=== PATIENT | female | born 1970 | race Caucasian/White ===

== ENCOUNTER 2020-09-29 15:23 | Outpatient (REF) | payer MEDICAID, OTHER, SELFPAY ==
--- NOTE | 2020-09-29 15:27 | US_ITS ---
EXAMINATION: US DIAGNOSTIC ULTRASOUND BREAST, LEFT CLINICAL INFORMATION: Six-month follow-up probable benign complicated cyst with apocrine metaplasia 3:00 position left breast. COMPARISON: Ultrasound left breast 03/23/2020. TECHNIQUE: Ultrasound left breast is targeted to the upper outer quadrant. Grayscale imaging and color Doppler are performed without and with harmonics. FINDINGS: The mildly complicated cyst is stable in size and appearance. Margins are circumscribed and overall size is approximately 0.6 x 0.4 cm. There is some low-level geographic internal echoes without associated peripheral or internal color flow. Other scattered simple cysts are also noted in the upper outer breast as before. No solid mass or architectural abnormality. Results are provided to the patient at time of visit by the technologist. US/US breast LT limited IMPRESSION: Mildly complicated or apocrine cyst under 1 cm, stable. ASSESSMENT: BI-RADS 2: Benign RECOMMENDATION: Routine annual mammography screening. This patient's information was entered into a reminder system with a target due date for their next mammogram.
== END 2020-09-29 15:24 | disposition home or self-care (01) ==
LOC: HO.MAMMO 15:23
PROVIDERS: Visit Provider Internal Medicine
DX: N60.02 Solitary cyst of left breast (principal)
CPT/HCPCS: 76642

== ENCOUNTER 2020-10-26 09:19 | Outpatient (REF) | payer MEDICAID, OTHER, SELFPAY ==
--- NOTE | 2020-10-26 | XR_ITS ---
EXAMINATION: XR ABDOMEN KUB CLINICAL INDICATION: Abdominal pain. COMPARISON: None TECHNIQUE: AP view of the abdomen. FINDINGS: There is scattered stool and gas seen throughout the colon without any significant distention. There is no organomegaly. No radiopaque calculi. No gross bony abnormality. XR/XR KUB IMPRESSION: Mild constipation.
[2020-10-26 11:34] LABS: Glucose Urine UA NEG (NEG); Leukocyte Esterase Urine NEG (NEG); Nitrite Urine NEG (NEG); PH 6.5 (5.0-8.0); Specific Gravity - Urine <= 1.005 (1.005-1.025); Urine Blood NEG (NEG); Urine Ketones NEG (NEG); Urine Protein NEG (NEG-TRACE)
[2020-10-26 11:37] LABS: Appearance Urine CLEAR; Color Urine STRAW
== END 2020-10-26 09:20 | disposition home or self-care (01) ==
LOC: HO.HMGCLDS 09:19
PROVIDERS: PCP Pediatrics; Visit Provider Internal Medicine
DX: R10.9 Unspecified abdominal pain (principal)
CPT/HCPCS: 74018; 81003

== ENCOUNTER 2022-07-28 16:23 | Outpatient (REF) | payer MEDICAID, OTHER, SELFPAY ==
--- NOTE | ~2022-07-28 | MM_ITS ---
EXAMINATION: MM SCREENING DIGITAL BREAST TOMOSYNTHESIS, BILATERAL CLINICAL INFORMATION: Screening. Asymptomatic. The lifetime risk of breast cancer based on the Tyrer-Cuzick Model is 9.9%. COMPARISON: Mammography: 03/23/2020 and studies dating back to 03/08/2010. TECHNIQUE: Digital breast tomosynthesis is performed in both the craniocaudal and mediolateral oblique views along with computer-aided detection (CAD). Synthesized 2D images are generated from the tomosynthesis. FINDINGS: The breasts are heterogeneously dense, which may obscure small masses (ACR BI-RADS breast composition Category c). There is a stable parenchymal pattern in the right breast with no new abnormal dominant mass or suspicious grouping of microcalcifications. Within the deep lateral aspect of the left breast, there is a question of some developing calcifications versus artifact. Spot magnification films of the left breast in craniocaudal projection is recommended. MM/MM tomosynthesis screening BI IMPRESSION: Left breast calcifications for further evaluation. ASSESSMENT: BI-RADS 0: Incomplete - Need Additional Imaging Evaluation RECOMMENDATION: 1. Additional views of the left breast. 2. Targeted ultrasound if warranted after review of the additional views. 3. Radiology department staff will contact the patient for additional imaging. This patient's information was entered into a reminder system with a target due date for their next mammogram.
== END 2022-07-28 16:24 | disposition home or self-care (01) ==
LOC: HO.MAMMO 16:23
PROVIDERS: PCP Pediatrics; Visit Provider Pediatrics
DX: Z12.31 Encounter for screening mammogram for malignant neoplasm of breast (principal)
CPT/HCPCS: 77063; 77067

== ENCOUNTER 2022-08-10 14:39 | Outpatient (REF) | payer MEDICAID, OTHER, SELFPAY ==
--- NOTE | ~2022-08-10 | MM_ITS ---
EXAMINATION: MM DIAGNOSTIC DIGITAL MAMMOGRAPHY, LEFT CLINICAL INFORMATION: Calcifications deep lateral aspect of the left breast. COMPARISON: Mammography: 07/28/2022 and studies dating back to 04/25/2012. TECHNIQUE: Digital mammography is performed in the following views: Spot compression craniocaudal and 90 degree mediolateral views. FINDINGS: The breasts are heterogeneously dense, which may obscure small masses (ACR BI-RADS breast composition Category c). No suspicious grouping of microcalcifications is identified. Some widely scattered calcifications are present. Stable density about the deep lateral aspect of the left breast is again seen. Results are provided to the patient at time of visit by the technologist. MM/MM added views LT IMPRESSION: No suspicious grouping of calcifications identified. ASSESSMENT: BI-RADS 2: Benign. RECOMMENDATION: Routine annual mammography screening. This patient's information was entered into a reminder system with a target due date for their next mammogram.
== END 2022-08-10 14:40 | disposition home or self-care (01) ==
LOC: HO.MAMMO 14:39
PROVIDERS: PCP Pediatrics; Visit Provider Pediatrics
DX: R92.1 Mammographic calcification found on diagnostic imaging of breast (principal)
CPT/HCPCS: 77065

== ENCOUNTER 2023-08-04 15:50 | Outpatient (REF) | payer OTHER, SELFPAY ==
--- NOTE | ~2023-08-04 | MM_ITS ---
EXAMINATION: MM SCREENING DIGITAL BREAST TOMOSYNTHESIS, BILATERAL CLINICAL INFORMATION: Screening. Asymptomatic. COMPARISON: Mammography: This study is compared with prior exams dating back to 2019. TECHNIQUE: Digital breast tomosynthesis is performed in both the craniocaudal and mediolateral oblique views along with computer-aided detection (CAD). Synthesized 2D images are generated from the tomosynthesis. FINDINGS: There are scattered areas of fibroglandular density (ACR BI-RADS breast composition Category b). There are no significant masses, abnormal calcifications, or other abnormalities. There is a tissue marker in the medial aspect of the left breast from prior benign percutaneous biopsy. MM/MM tomosynthesis screening BI IMPRESSION: No mammographic evidence of malignancy. ASSESSMENT: BI-RADS BI-RADS 2 - Benign Findings RECOMMENDATION: Routine annual mammography screening. 1 year F/U This examination should not preclude the clinical evaluation of a suspicious palpable abnormality. This patient's information was entered into a reminder system with a target due date for their next mammogram.
== END 2023-08-04 15:51 | disposition home or self-care (01) ==
LOC: HO.MAMMO 15:50
PROVIDERS: PCP Pediatrics; Visit Provider Pediatrics
DX: Z12.31 Encounter for screening mammogram for malignant neoplasm of breast (principal)
CPT/HCPCS: 77063; 77067

== ENCOUNTER → 2023-08-04 16:00 | Outpatient (BNV) | payer SELFPAY | PROVIDERS: PCP Pediatrics; Visit Provider Radiology Diagnostic Radiology | DX: Z12.31 Encounter for screening mammogram for malignant neoplasm of breast (principal) | CPT/HCPCS: 77063; 77067 ==

== ENCOUNTER 2024-02-29 09:43 | Outpatient (REF) | payer OTHER, SELFPAY ==
[2024-02-29 15:04] LABS: Alanine Aminotransferase 16 U/L (0-31); Albumin Level 4.2 g/dL (3.5-5.0); Alkaline Phosphatase 67 U/L (39-117); Anion Gap 12 (12-20); Aspartate Amino Transferase 18 U/L (5-31); Bilirubin Direct 0.2 mg/dL (0.0-0.5); Bilirubin Total 0.8 mg/dL (0.0-1.0); Blood Urea Nitrogen 13 mg/dL (9-16); Calcium 9.7 mg/dL (8.4-10.2); Carbon Dioxide 27 mmol/L (22-29); Chloride 105 mmol/L (96-108); Cholesterol 216 mg/dL (<200); Estimated Glomerular Filt Rate > 60; Glucose Random 93 mg/dL (60-115); HDL Cholesterol 58 mg/dL (>40); LDL Cholesterol Calculated 137 mg/dL (<100); Potassium 3.7 mmol/L (3.3-5.1); Sodium 140 mmol/L (135-145); Total Protein 7.4 g/dL (6.5-8.0); Triglycerides 105 mg/dL (<150)
[2024-03-01 08:12] LABS: ~HepC Num1 0.08 S/CO (0.00-0.79); ~Hepatitis C Antibody Nonreactive (Nonreactive)
[2024-03-03 06:39] LABS: HIV RNA PCR Qn Copies Not Detected Copies/mL; HIV RNA PCR Qn Log Copies Not Detected Log cps/mL
== END 2024-02-29 09:44 | disposition home or self-care (01) ==
LOC: HO.CHCLDS 09:43
PROVIDERS: Visit Provider Student in an Organized Health Care Education/Training Program
DX: R00.2 Palpitations (principal)
CPT/HCPCS: 36415; 80048; 80061; 80076; 86803; 87536; 87900

== ENCOUNTER 2024-08-06 15:19 | Outpatient (REF) | payer OTHER, SELFPAY ==
--- NOTE | ~2024-08-06 | MM_ITS ---
EXAMINATION: MM SCREENING DIGITAL BREAST TOMOSYNTHESIS, BILATERAL CLINICAL INFORMATION: Screening. Asymptomatic. COMPARISON: Mammography: Comparison is made with available priors TECHNIQUE: Digital breast mammography with tomosynthesis is performed in both the craniocaudal and mediolateral oblique views along with computer-aided detection (CAD). FINDINGS: The breasts are heterogeneously dense, which may obscure small masses (ACR BI-RADS breast composition Category c). Left: There are no significant masses, abnormal calcifications, or other abnormalities. Right: Asymmetry with questioned distortion superior right breast on MLO view middle depth. Post surgical changes. No suspicious calcifications or other abnormal findings. MM/MM tomosynthesis screening BI IMPRESSION: Additional imaging is recommended ASSESSMENT: BI-RADS BI-RADS 0 - Incomplete: Needs additional Imaging. RECOMMENDATION: 1. Additional views of the right breast 2. Targeted ultrasound if warranted after review of the additional views. 3. Radiology department staff will contact the patient for additional imaging. Additional Imaging required This examination should not preclude the clinical evaluation of a suspicious palpable abnormality. This patient's information was entered into a reminder system with a target due date for their next mammogram. Electronically signed by: Consuelo Felix DO 08/13/2024 11:42 AM GEORGE
== END 2024-08-06 15:20 | disposition home or self-care (01) ==
LOC: HO.MAMMO 15:19
PROVIDERS: PCP Pediatrics; Visit Provider Pediatrics
DX: Z12.31 Encounter for screening mammogram for malignant neoplasm of breast (principal)
CPT/HCPCS: 77063; 77067

== ENCOUNTER → 2024-08-06 15:45 | Outpatient (BNV) | payer SELFPAY | PROVIDERS: PCP Pediatrics; Visit Provider Internal Medicine | DX: Z12.31 Encounter for screening mammogram for malignant neoplasm of breast (principal) | CPT/HCPCS: 77063; 77067 ==

== ENCOUNTER 2024-08-28 08:36 | Outpatient (REF) | payer SELFPAY ==
--- NOTE | ~2024-08-28 | MM_ITS ---
EXAMINATION: MM DIAGNOSTIC DIGITAL BREAST TOMOSYNTHESIS, RIGHT Limited right breast ultrasound. CLINICAL INFORMATION: Call back from screening for asymmetry with questioned distortion in the superior right breast on MLO view. COMPARISON: Mammography: Comparison is made with available prior examinations. TECHNIQUE: Digital breast tomosynthesis is performed in both the craniocaudal and mediolateral oblique views along with computer-aided detection (CAD). Synthesized 2D images are generated from the tomosynthesis. Limited right breast ultrasound. FINDINGS: The breasts are heterogeneously dense, which may obscure small masses (ACR BI-RADS breast composition Category c). The previously seen asymmetry with questioned architectural distortion partially effaces on additional imaging projections. Suspicious calcifications or other abnormal findings. Post surgical changes are again seen. Targeted right breast ultrasound the upper central breast and upper outer quadrant and upper inner quadrant demonstrates normal fibroglandular breast tissue. MM/MM tomosynthesis added views R IMPRESSION: Asymmetry superior right breast on MLO view which partially effaces and without sonographic correlate. Recommend 6 month follow-up right breast mammography for further evaluation of stability. ASSESSMENT: BI-RADS BI-RADS 3 - Probably benign finding(s) - 6 month follow-up suggested RECOMMENDATION: 1 year F/U (accession [id number]), 6 Month F/U (accession [id number]) Results were provided to the patient at time of visit by the technologist. This patient's information was entered into a reminder system with a target due date for their next mammogram. Electronically signed by: Consuelo Felix DO 08/28/2024 09:39 AM GEORGE
--- NOTE | ~2024-08-28 | US_ITS ---
EXAMINATION: MM DIAGNOSTIC DIGITAL BREAST TOMOSYNTHESIS, RIGHT Limited right breast ultrasound. CLINICAL INFORMATION: Call back from screening for asymmetry with questioned distortion in the superior right breast on MLO view. COMPARISON: Mammography: Comparison is made with available prior examinations. TECHNIQUE: Digital breast tomosynthesis is performed in both the craniocaudal and mediolateral oblique views along with computer-aided detection (CAD). Synthesized 2D images are generated from the tomosynthesis. Limited right breast ultrasound. FINDINGS: The breasts are heterogeneously dense, which may obscure small masses (ACR BI-RADS breast composition Category c). The previously seen asymmetry with questioned architectural distortion partially effaces on additional imaging projections. Suspicious calcifications or other abnormal findings. Post surgical changes are again seen. Targeted right breast ultrasound the upper central breast and upper outer quadrant and upper inner quadrant demonstrates normal fibroglandular breast tissue. US/US breast RT limited mamm only IMPRESSION: Asymmetry superior right breast on MLO view which partially effaces and without sonographic correlate. Recommend 6 month follow-up right breast mammography for further evaluation of stability. ASSESSMENT: BI-RADS BI-RADS 3 - Probably benign finding(s) - 6 month follow-up suggested RECOMMENDATION: 1 year F/U (accession [id number]), 6 Month F/U (accession [id number]) Results were provided to the patient at time of visit by the technologist. This patient's information was entered into a reminder system with a target due date for their next mammogram. Electronically signed by: Consuelo Felix DO 08/28/2024 09:39 AM GEORGE
== END 2024-08-28 08:37 | disposition home or self-care (01) ==
LOC: HO.MAMMO 08:36
PROVIDERS: PCP Pediatrics; Visit Provider Pediatrics
DX: N64.89 Other specified disorders of breast (principal)
CPT/HCPCS: 76642; 77061; 77065

== ENCOUNTER → 2024-08-28 09:00 | Outpatient (BNV) | payer SELFPAY | PROVIDERS: PCP Pediatrics; Visit Provider Internal Medicine | DX: R92.331 Mammographic heterogeneous density, right breast (principal); R92.321 Mammographic fibroglandular density, right breast; R92.8 Other abnormal and inconclusive findings on diagnostic imaging of breast | CPT/HCPCS: 76642; 77061; 77065 ==

== ENCOUNTER 2025-02-27 10:25 | Outpatient (REF) | payer OTHER, SELFPAY ==
--- NOTE | ~2025-02-27 | MM_ITS ---
EXAMINATION: MM DIAGNOSTIC DIGITAL BREAST TOMOSYNTHESIS, RIGHT CLINICAL INFORMATION: Asymmetry superior right breast on MLO view which partially effaces and without sonographic correlate recommended for 6 month follow-up for further evaluation of stability. COMPARISON: Mammography: Prior imaging on PACS. TECHNIQUE: Digital breast tomosynthesis is performed in both the craniocaudal and mediolateral oblique views along with computer-aided detection (CAD). Synthesized 2D images are generated from the tomosynthesis. FINDINGS: The breasts are heterogeneously dense, which may obscure small masses (ACR BI-RADS breast composition Category c). Asymmetry superior right breast middle depth on MLO view is also slightly less conspicuous compared with priors. No sonographic correlate was previously seen. No suspicious calcifications or other abnormal findings. MM/MM tomosynthesis diagnostic RT IMPRESSION: Right: Asymmetry superior right breast middle depth on MLO view without sonographic correlate not significantly changed from prior. Recommend 6 month follow up with the patient is due for bilateral mammography to demonstrate 1 year of stability. ASSESSMENT: BI-RADS BI-RADS 3 - Probably benign finding(s) - 6 month follow-up suggested RECOMMENDATION: 6 Month F/U Results were provided to the patient at time of visit by the technologist. This patient's information was entered into a reminder system with a target due date for their next mammogram. Electronically signed by: Consuelo Felix DO 02/27/2025 11:23 AM EDT
--- OUTSIDE RECORDS SUMMARY | 2025-02-27 10:50 | XMS_ITS | Referral Summary ---
Author Organization [facility] Address [address] [place] [address] Care Team Providers Care Epic Manager Name Role Phone Nicki Hickey Primary Care Provider [phone] Allergies No known active allergies Medications dilTIAZem CD (CARDIZEM CD) 120 mg 24 hr capsule Take 1 capsule (120 mg total) by mouth once a day. 30 capsule 11 09/22/2021 Active Active Problems Problem Noted Date Diagnosed Date Palpitations 09/22/2021 Social History Tobacco Use Types Packs/Day Years Used Date Smoking Tobacco: Never Smokeless Tobacco: Never Comments Unknown Sex and Gender Information Value Date Recorded Sex Assigned at Not on file Legal Sex Female 1:20 PM EDT Gender Identity Not on file Sexual Orientation Not on file Last Filed Vital Signs Vital Sign Reading Time Taken Comments Blood Pressure 127/82 09/22/2021 2:20 PM EST Pulse 80 09/22/2021 2:20 PM EST Temperature - - Respiratory Rate 16 09/22/2021 2:20 PM EST Oxygen Saturation 100% 09/22/2021 2:20 PM EST Inhaled Oxygen Concentration - - Weight 56 kg (123 lb 6.4 oz) 09/22/2021 2:20 PM EST Height - - Body Mass Index - - Plan of Treatment Not on file Insurance HS[employer]/[place] [address] [place] [address] Care Teams Epic Manager Relationship Specialty Start Date End Date Nicki Hickey [address] [place] [phone] PCP - General Family Medicine 07/30/21
== END 2025-02-27 10:26 | disposition home or self-care (01) ==
LOC: HO.MAMMO 10:25
PROVIDERS: PCP Pediatrics; Visit Provider Pediatrics
DX: N64.89 Other specified disorders of breast (principal)
CPT/HCPCS: 77061; 77065

== ENCOUNTER → 2025-02-27 11:00 | Outpatient (BNV) | payer SELFPAY | PROVIDERS: PCP Pediatrics; Visit Provider Internal Medicine | DX: R92.2 Inconclusive mammogram (principal) | CPT/HCPCS: 77061; 77065 ==

== ENCOUNTER 2025-06-12 15:56 | Outpatient (REF) | payer SELFPAY ==
--- OUTSIDE RECORDS SUMMARY | 2025-06-11 18:00 | XMS_ITS | Encounter Summary ---
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 Name Role Phone Nicki Hickey MD Primary Care Provider [phone] Encounter Details Date Type Department Care Team ([facility] st Contact Info) Description 06/11/2025 6:00 PM EDT Office Visit [facility] [address] [place] [phone] Arun Peterson MD [address] [place] [id number] Occupational exposure in workplace (Primary Dx); Hypodermic needlestick injury of finger Social History Tobacco Use Types Packs/Day Years Used Date Smoking Tobacco: Never Passive Smoke Exposure: Never Smokeless Tobacco: Never Alcohol Use Standard Drinks/Week Comments Never 0 (1 standard drink = 0.6 oz pur e alcohol) Alcohol Answer Date Recorded Frequency of Alcohol Consumption Not on file 02/29/2024 Average Number of Drinks Not on file 024 Frequency of Binge Drinking Not on file 02/01 Score 0 02/29/2024 Depression Answer Date Recorded Patient Health Questionnaire-9 Score 3 02/29/2024 Patient Health Questionnaire-9 Score 3 02/29/2024 Last PHQ-9: Questionnaire Data Not on file 0 02/29/2024 Housing Stability Answer Date Recorded What is your housing situation today? I have tana allison 02/29/[address] you li ve. Do you have problems with any of the following? None of the above 02/29/2024 Food Insecurity Answer Date Recorded Within the past 12 months, y ou worried that your food would run out before you got money to buy more: Never True 02/29/2024 Within the past 12 months,th e food you bought just didn't last and you didn't have enough money to get more: Never True Transportation Answer Date Recorded In the past 12 months, has l ack of transportation kept you from medical appts, meetings, work or from getting things needed for daily living? No 02/29/2024 Utilities Answer Date Recorded In the past 12 months, has t he electric, gas, oil or water company threatened to shut off services in your home? No 02/29/2024 Depression Answer Date Recorded Patient Health Questionnaire-2 Score 0 02/29/2024 Comments Unknown Sex and Gender Information Value Date Recorded Sex Assigned at Female 08/01/2022 10:16 AM EDT Legal Sex Female 10:16 AM EDT Gender Identity Female 08/01/2022 10:16 AM EDT Sexual Orientation Straight 08/01/2022 10 :16 AM EDT documented as of this encounter Last Filed Vital Signs Vital Sign Reading Time Taken Comments Blood Pressure 131/78 06/11/2025 5:56 PM EDT Pulse 77 06/11/2025 5:56 PM EDT Temperature 36.1 C (96.9 F) 06/11/2025 5:56 PM EDT Respiratory Rate 20 06/11/2025 5:56 PM EDT Oxygen Saturation 98% 06/11/2025 5:56 PM EDT Inhaled Oxygen Concentration - - Weight 52.9 kg (116 lb 9.6 oz) 06/11/2025 5:56 P M EDT Height 147.3 cm (4' 10 ) 06/11/2025 5:56 PM EDT Body Mass Index 24.37 06/11/2025 5:56 PM EDT documented in this encounter Progress Notes * Arun Peterson MD - 06/11/2025 6:00 PM EDT Subjective History was provided by the patient. Nusrat Conte is a 55 y.o. female who presents to [facility] after an occupational needle stickto her right index finger which occurred 3 hours prior to the presentation. 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 She accidentally stuck herself, causing a puncture wound. The resident's STI status is unknown and the team has not yet asked for a permission to check his status. The source resident did not have any known communicable disease documented as far as she knows. Patient previously had negative HIV and Hep C results (02/29/2024). Objective Vitals: 06/11/25 1756 BP: 131/78 Pulse: 77 Resp: 20 Temp: 96.9 ??F (36.1 ??C) TempSrc: Temporal SpO2: 98% Weight: 116 lb 9.6 oz (52.9 kg) Height: 4' 10 (1.473 m) Physical Exam Constitutional: General: She is not in acute distress. Appearance: Normal appearance. She is not ill-appearing, toxic-appearing or diaphoretic. HENT: Head: Normocephalic and atraumatic. Nose: Nose normal. Mouth/Throat: Mouth: Mucous membranes are moist. Pharynx: Oropharynx is clear. Eyes: Extraocular Movements: Extraocular movements intact. Conjunctiva/sclera: Conjunctivae normal. Pulmonary: Effort: Pulmonary effort is normal. Musculoskeletal: General: Normal range of motion. Cervical back: Neck supple. Skin: General: Skin is warm and dry. Comments: Small punctum at the tip of right index finger; no surrounding erythema or edema; no active bleeding Neurological: General: No focal deficit present. Mental Status: She is alert and oriented to person, place, and time. Psychiatric: Mood and Affect: Mood normal. Behavior: Behavior normal. Diagnoses and all orders for this visit: Occupational exposure in workplace (Primary) - HIV-1/2 Antigen and Antibodies, Fourth Generation, with Reflexes; Future - hiktuhjkhjo-adxlzdxawu-zssqdzamz (Biktarvy) 50-200-25 MG tablet; Take 1 tablet by mouth Once per day for 28 days. Initiate therapy within 72 hours of exposure - Hepatitis B Surface Antibody, Qualitative; Future - Hepatitis B surface antigen, EIA; Future - Hepatic Function Panel; Future - Hepatitis C Antibody with Reflex to HCV, RNA, Quantitative, Real-Time PCR; Future - Syphilis Screen; Future Hypodermic needlestick injury of finger - HIV-1/2 Antigen and Antibodies, Fourth Generation, with Reflexes; Future - uoqcatdxouc-ggnbxyzuyd-rrokxprzn (Biktarvy) 50-200-25 MG tablet; Take 1 tablet by mouth Once perday for 28 days. 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 Had a needle stick injury to her right index finger contaminated with a rehab resident's urine STI status of the source resident is unknown Informed patient of fairly low HIV transmission rate following percutaneous exposure Discussed testing parameters and frequency of testing Will check baseline HIV test (4th Gen Ab/Ag), along with Hep B SAg, Hep C Ab, Syphilis, and LFT If continuing with the 4th Gen HIV labs, will repeat at 6 weeks and 4 months Will also check Hep B SAb as we only have a documentation of 1 dose of Hep B vaccine (03/22/2024) Patient is UTD on Tdap (03/22/2024) Discussed indications for post-exposure prophylaxis for HIV Patient will discuss with the workplace to see if testing of the source resident can be offered [facility] protocol Patient opted to start PEP until the resident's result returns negative (if available) or for 28 days (will reassess afterward) Shared decision was made after discussing the risks of infection with HIV against the toxicity and inconvenience of PEP Rx Hwctnkhcydq-Pusduburaweyq-Yujfdyagd [id number] PO daily for 28 days Also advised to monitor for any symptoms of infection including redness, swelling, pain, and F/C Indications for UC/ER use reviewed Advised to contact the clinic if any worsening or persistent symptoms Will contact the PCP team to offer a follow-up appointment documented in this encounter Plan of Treatment Scheduled Orders Name Type Priority Associated Diagnoses Orde r Schedule HIV-1/2 Antigen and Antibodies, Fourth Generation, with Reflexes Lab Routine Occupational exposure in workplace Hypodermic needlestick injury of finger Expected: 06/11/2025 (Approximate), Expires: 06/11/2026 Hepatitis B Surface Antibody, Qualitative Lab Routine Occupational exposure in workplace Hypodermic needlestick injury of finger Expected: 06/11/2025 (Approximate), Expires: 06/11/2026 Hepatitis B surface antigen, EIA Lab Routine Occupational exposure in workplace Hypodermic needlestick injury of finger Expected: 06/11/2025 (Approximate), Expires: 06/11/2026 Hepatitis C Antibody with Reflex to HCV, RNA, Quantitative, Real-Time PCR Lab Routine Occupational exposure in workplace Hypodermic needlestick injury of finger Expected: 06/11/2025 (Approximate), Expires: 06/11/2026 Syphilis Screen Lab Routine Occupational exposure in workplace Hypodermic needlestick injury of finger Expected: 06/11/2025 (Approximate), Expires: 06/11/2026 documented as of this encounter Procedures Procedure Name Priority Date/Time Associated Diagnosis Comments HEPATIC FUNCTION PANEL Routine 06/12/2025 3:38 PM EDT Occupational exposure in workplace Hypodermic needlestick injury of finger documented in this encounter Results * Hepatic Function Panel (06/12/2025 3:38 PM EDT) Bilirubin, Total 0.9 0.0 - 1.0 mg/dL [facility] Bilirubin, Direct 0.2 0.0 - 0.5 mg/dL [facility] Aspartate Amino Transferase 26 5 - 31 U/L [facility] Alanine Aminotransferase 22 0 - 31 U/L [facility] Total Protein 7.2 6.5 - 8.0 g/dL [facility] Albumin Level 4.4 3.5 - 5.0 g/dL [facility] Alkaline Phosphatase 73 39 - 117 U/L [facility] Blood Venous blood specimen / Unknown 06/12/2025 3:38 PM EDT 06/12/2025 5:29 PM EDT us Arun Peterson MD LAB BLOOD ORDERABLES Final Resul t [facility] [address] [place] [phone] [phone] documented in this encounter Visit Diagnoses Diagnosis Occupational exposure in workplace- Primary Hypodermic needlestick injury of finger documented in this encounter Additional Health Concerns Assessment Noted Time PHQ-9 Depression Total Score: 3 02/29/20 24 9:15 AM EDT documented as of this encounter Care Teams Treating Machine Operator Relationship Specialty Start Date End Date Nicki Hickey MD [address] [place] [address] PCP - General Family Medicine 11/01/13 documented as of this encounter
[2025-06-12 17:58] LABS: Alanine Aminotransferase 22 U/L (0-31); Albumin Level 4.4 g/dL (3.5-5.0); Alkaline Phosphatase 73 U/L (39-117); Aspartate Amino Transferase 26 U/L (5-31); Total Protein 7.2 g/dL (6.5-8.0)
--- OUTSIDE RECORDS SUMMARY | 2025-06-12 18:51 | XMS_ITS | Encounter Summary ---
Author Organization [employer] Address [address] [facility] [address] 7[address] [place] [address] Care Team Providers Care Call Center Manager Name Role Phone Nicki Hickey MD Primary Care Provider [phone] Encounter Details Date Type Department Care Team ([facility] Contact Info) Description 06/11/2025 Telephone [facility] [address] [place], [place] [phone] Arun Peterson MD [address] [place] [address] Social History Tobacco Use Types Packs/Day Years [...] your housing situation today? I have tana keegan 02/29/[address] you li [...] AM EDT documented as of this encounter Miscellaneous Notes * Telephone Encounter - Arun Peterson MD - 06/11/2025 7:34 PM EDT Request for an appointment with PCP. documented in this encounter Plan of Treatment Not on file documented as of this encounter Visit Diagnoses Not on filedocumented in this encounter Additional Health Concerns Assessment Noted Time PHQ-9 Depression Total Score: 3 02/29/20 24 9:15 AM EDT documented as of this encounter Care Teams Call Center Manager Relationship Specialty Start Date End Date Nicki Hickey MD [address] [place] [phone] PCP - General Family Medicine 11/01/13 documented as of this encounter
--- OUTSIDE RECORDS SUMMARY | 2025-06-12 18:51 | XMS_ITS | Clinical Summary ---
Author Organization [facility] Address [address] [place] [address] Care Team Providers Care Unit Controller Name Role Phone Nicki Hickey Primary Care Provider [phone] Allergies No known active allergies Medications dilTIAZem [...] Mass Index - - Plan of Treatment Health Maintenance Due Date Last Done Comments Cologuard 1971 Colon Cancer Screening 1971 Colonoscopy 1971 FOBT / Fit Test 1971 HIV Screening 1971 Sigmoidoscopy 1971 Hepatitis B Vaccines (1 of 3 - 19+ 3-dose series) 1990 DTaP,Tdap,and Td Vaccines (1 - Tdap) 1993 Pneumococcal Vaccine: 50+ Ye ars (1 of 1 - PCV) 2021 Zoster Vaccines (1 of 2) 2021 Alcohol/Substance Use Screening 10/02/2024 COVID-19 Vaccine (4 - 2024-2 6 season) 2025 10/04/2021, 02/01/2021, 01/11/2021 Influenza Vaccine (#1) 2025 , 10/22/2020, 07/24/2015, Additional history exists RSV Vaccine (60+ years old a nd patients) (1 - 1-dose 75+ series) 2046 [place] [id number] Care Teams Unit Controller Relationship Specialty Start Date End Date Nicki Hickey [address] [place] [phone] PCP - General Family Medicine 07/30/21
--- OUTSIDE RECORDS SUMMARY | 2025-06-12 18:51 | XMS_ITS | Encounter Summary ---
Author Organization [employer] Address 75 [facility] 7t [place] [address] Care Team Providers Care Business Integration Analyst Name Role Phone Nicki Hickey MD Primary Care Provider [phone] Encounter Details Date Type Department Care Team (Latest Contact Info) Description 06/11/2025 Travel Social History Tobacco Use Types Packs/Day Years [...] AM EDT documented as of this encounter Plan of Treatment Not on file documented as of this encounter Visit Diagnoses Not on filedocumented in this encounter Additional Health Concerns Assessment Noted Time PHQ-9 Depression Total Score: 3 02/29/20 24 9:15 AM EDT documented as of this encounter Care Teams Business Integration Analyst Relationship Specialty Start Date End Date Nicki Hickey MD [address] [place] [address] PCP - General Family Medicine 11/01/13 documented as of this encounter
--- OUTSIDE RECORDS SUMMARY | 2025-06-12 18:51 | XMS_ITS | Clinical Summary ---
Author Organization [employer] Address [address] [facility] 7t [place] [address] Care Team Providers Care Substation Operator Helper Generation Name Role Phone Nicki Hickey MD Primary Care Provider [phone] Allergies No known active allergies Medications bictegravir-emtr icitab-tenofovir (Biktarvy) 50-200-25 MG tabletIndication s:Occupational exposure in workplace,Hypode rmic needlestick injury of finger Take 1 tablet by mouth Once per day for 28 days. Initiate therapy within 72 hours of exposure 28 tablet 07/09/20 25 Active Active Problems Problem Noted Date Diagnosed Date Palpitations 09/22/2021 Resolved Problems Problem Noted Date Diagnosed Date Resolved Date Pain of breast 2012 02/29/2024 Encounters Date Type Department Care Team Description 06/11/2025 6:00 PM EDT Office Visit [facility] [address] [place] [phone] Arun Peterson MD Occupational exposure in workplace (Primary Dx); Hypodermic needlestick injury of finger 06/11/2025 Telephone [facility] [address] [place] [address] Arun Peterson MD 06/11/2025 Travel 03/18/2025 Telephone [facility] [address] [place] [address] [phone] Stacy Santiago CNM June Recall from Last 3 Months Immunizations Immunization Administration Dates Next Due Hep B, adult 03/22/2024 Influenza Injectable Quadriv alant Preservative Free IIV4 MDCK 10/22/2020 Influenza injectable quadriv alent IIV4 with preservative 07/24/2015 Influenza injectable quadriv alent preservative free 06/22/2022,07/16/2021,07/22/2014 Influenza, Split (incl. jas fied surface antigen) 2012 MMR 03/22/2024 Pfizer Covid-19 Vaccine 12+ 03/22/2024,0 10/04/2021,02/01/2021,2020 TD (adult), 2 Lf tetanus tox oid, preservative free, adsorbed 02/29/2024 Tdap 03/22/2024 Zoster, Recombinant 01/17/2024,07/18/2022 Social History Tobacco Use Types Packs/Day Years Used Date Smoking Tobacco: Never Passive Smoke Exposure: Never Smokeless Tobacco: Never Tobacco Cessation:Counseling Given: Not Answered Alcohol Use Standard Drinks/Week Comments Never 0 [...] Orientation Straight 08/01/2022 10 :16 AM EDT Last Filed Vital Signs Vital Sign Reading [...] Mass Index 24.37 06/11/2025 5:56 PM EDT Plan of Treatment Health Maintenance Due Date Last Done Comments CT Colonography 1971 Colonoscopy 1971 Colorectal Cancer Screening 1971 FIT DNA/Cologuard 1971 FIT 1971 FOBT 1971 HIV Screening 1971 Sigmoidoscopy 1971 Disability Screening 1971 Alcohol/Substance Use Screening 1983 Pneumococcal Vaccine: 50+ Years (1 of 1 - PCV) 2021 Hepatitis B Vaccines (2 of 3 - 19+ 3-dose series) 04/19/2024 03/22/2024 Dental Oral Exam 10/14/2024 04/12/2024 Depression Screening 02/28/2025 02/29/2024, 02/29/20 24 SDOH Screening 02/28/2025 02/29/2024 Dental X-Ray: Bitewings 04/13/2025 04/12/2024 Dental Prophylaxis 04/23/2025 10/23/2024, 04/12/2024 COVID-19 Vaccine ( season) 2025 03/22/2024, 08/01/2022, 10/04/2021, Additional history exists Influenza Vaccine (#1) 2025 2, 07/16/2021, 10/22/2020, Additional history exists Cervical Cancer Screening 06/09/2025 HPV/Cotest 06/09/2025 06/09/2020, 05/02/2017 Pap Smear 06/09/2025 06/09/2020 Tobacco Screening 06/11/2026 06/11/2025 Mammogram 02/27/2027 02/27/2025, 08/03, 08/06/2024, Additional history exists Dental X-Ray: Full Mouth 04/13/2027 04/12/2024 DTaP/Tdap/Td Vaccines (2 - Td or Tdap) 03/22/2034 03/22/2024, 02/29/2024 RSV Patients and Patients Aged 60 years or older (1 - 1-dose 75+ series) 2046 Zoster Vaccines Completed 01/17/2024, 07/18/2022 Hepatitis C Screening Completed 02/29/2024 HIB Vaccines Aged Out No longer eligi ble based on patient's age to complete this topic HPV Vaccines Aged Out No longer eligi ble based on patient's age to complete this topic Hepatitis A Vaccines Aged Out No long er eligible based on patient's age to complete this topic IPV Vaccines Aged Out No longer eligi ble based on patient's age to complete this topic Meningococcal B Vaccine Aged Out No l onger eligible based on patient's age to complete this topic Meningococcal Vaccine Aged Out No milan diana eligible based on patient's age to complete this topic RSV under 20 months Aged Out No longe r eligible based on patient's age to complete this topic Rotavirus Vaccines Aged Out No longer eligible based on patient's age to complete this topic Procedures Procedure Name Priority Date/Time Associated Diagnosis Comments HEPATIC FUNCTION PANEL Routine 3:38 PM EDT Occupational exposure in workplace Hypodermic needlestick injury of finger BI MAMMOGRAM DIAGNOSTIC TOMOSYNTHESIS RIGHT Routine 02/27/2025 10:40 AM EDT PROPHYLAXIS - ADULT Routine 10/23/2024 3 :00 PM EST INTRAORAL - COMPLETE SERIES OF RADIOGRAPHIC IMAGES Routine 04/12/2024 3:00 PM EDT PERIODIC ORAL EVALUATION - ESTABLISHED PATIENT Routine 04/12/2024 3:00 PM EDT HEPATITIS C AB W/REFL TO HCV RNA, QN, PCR Routine 02/29/2024 9:45 AM EDT Palpitations HPV MRNA E6/E7 Routine 06/09/2020 3:38 PM EDT THINPREP PAP Routine 06/09/2020 3:38 PM EDT from Last 3 Months or Most Recently Relevant to Health Maintenance Results * Hepatic Function Panel (06/12/2025 3:38 PM EDT) Bilirubin, Total 0.9 0.0 - 1.0 mg/dL [facility] Bilirubin, Direct 0.2 0.0 - 0.5 mg/dL [facility] Aspartate Amino Transferase 26 5 - 31 U/L [facility] Alanine Aminotransferase 22 0 - 31 U/L [facility] Total Protein 7.2 6.5 - 8.0 g/dL [facility] Albumin Level 4.4 3.5 - 5.0 g/dL [facility] Alkaline Phosphatase 73 39 - 117 U/L [facility] Blood Venous blood specimen / Unknown 06/12/2025 3:38 PM EDT 06/12/2025 5:29 PM EDT us Arun Peterson MD LAB BLOOD ORDERABLES Final Resul t [facility] [address] [place] [phone] * BI Mammogram Diagnostic Tomosynthesis Right (02/27/2025 10:40 AM EDT) Anatomical Region Laterality Modality Breast Right Mammography 02/27/2025 10:4 0 AM EDT Narrative 02/27/2025 11:26 AM EDT [facility] [address] [place] [address] Mammography Report Signed Patient: Nusrat Conte MR#: [id number] [id number] : 1970 Acct:[id number] Age/Sex: 54 / F ADM Date: 02/27/25 Loc: HO.MAMMO Attending Dr: Elizabeth Kent MD Ordering Physician: Elizabeth Kent MD Results: 3.6MProbably Benign Finding - Short 6 M F/U Suggested Date of Service: 02/27/25 Follow Up: 6 Month F/U Procedure(s): MM tomosynthesis diagnostic RT Accession Number(s): [id number] cc: Elizabeth Kent MD EXAMINATION: MM DIAGNOSTIC DIGITAL BREAST TOMOSYNTHESIS, RIGHT CLINICAL INFORMATION: Asymmetry superior right breast on MLO view which partially effaces and without sonographic correlate recommended for 6 month follow-up for further evaluation of stability. COMPARISON: Mammography: Prior imaging on PACS. TECHNIQUE: Digital breast tomosynthesis is performed in both the craniocaudal and mediolateral oblique views along with computer-aided detection (CAD). Synthesized 2D images are generated from the tomosynthesis. FINDINGS: The breasts are heterogeneously dense, which may obscure small masses (ACR BI-RADS breast composition Category c). Asymmetry superior right breast middle depth on MLO view is also slightly less conspicuous compared with priors. No sonographic correlate was previously seen. No suspicious calcifications or other abnormal findings. MM/MM tomosynthesis diagnostic RT IMPRESSION: Right: Asymmetry superior right breast middle depth on MLO view without sonographic correlate not significantly changed from prior. Recommend 6 month follow up with the patient is due for bilateral mammography to demonstrate 1 year of stability. ASSESSMENT: BI-RADS BI-RADS 3 - Probably benign finding(s) - 6 month follow-up suggested RECOMMENDATION: 6 Month F/U Results were provided to the patient at time of visit by the technologist. This patient's information was entered into a reminder system with a target due date for their next mammogram. Electronically signed by: Consuelo Felix DO 02/27/2025 11:23 AM EDT Dictated By: Consuelo Felix DO Signed By: <Electronically signed by Consuelo Felix DO in OV> 02/27/25 1123 DD/ 1040 TD/TT: 02/27/25 1050 Interior Design Professional: Procedure Note Donotuseinterpreter, Image - 02/27/2025 [facility] [address] [place] [address] Mammography Report Signed Patient: Nusrat Conte LMR#: [id number] : 1970Acct:[id number] Age/Sex: 54 / FADM Date: 02/27/25 Loc: HO.MAMMO Attending Dr: Elizabeth Kent MD Ordering Physician: Elizabeth Kent MD Results: 3.6MProbably Benign Finding - Short 6 M F/U Suggested Date of Service: 02/27/25Follow Up: 6 Month F/U Procedure(s): MM tomosynthesis diagnostic RT Accession Number(s): [id number] cc: Elizabeth Kent MD EXAMINATION: MM DIAGNOSTIC DIGITAL BREAST TOMOSYNTHESIS, RIGHT CLINICAL INFORMATION: Asymmetry superior right breast on MLO view which partially effaces and without sonographic correlate recommended for 6 month follow-up for further evaluation of stability. COMPARISON: Mammography: Prior imaging on PACS. TECHNIQUE: Digital breast tomosynthesis is performed in both the craniocaudal and mediolateral oblique views along with computer-aided detection (CAD). Synthesized 2D images are generated from the tomosynthesis. FINDINGS: The breasts are heterogeneously dense, which may obscure small masses (ACR BI-RADS breast composition Category c). Asymmetry superior right breast middle depth on MLO view is also slightly less conspicuous compared with priors. No sonographic correlate was previously seen. No suspicious calcifications or other abnormal findings. MM/MM tomosynthesis diagnostic RT IMPRESSION: Right: Asymmetry superior right breast middle depth on MLO view without sonographic correlate not significantly changed from prior. Recommend 6 month follow up with the patient is due for bilateral mammography to demonstrate 1 year of stability. ASSESSMENT: BI-RADS BI-RADS 3 - Probably benign finding(s) - 6 month follow-up suggested RECOMMENDATION: 6 Month F/U Results were provided to the patient at time of visit by the technologist. This patient's information was entered into a reminder system with a target due date for their next mammogram. Electronically signed by: Consuelo Felix DO 02/27/2025 11:23 AM EDT RP Workstation: [employer] Dictated By: Consuelo Felix DO Signed By: <Electronically signed by Consuelo Felix DO in OV> 02/27/25 1123 DD/ 1040 TD/TT: 02/27/25 1050 Interior Design Professional: us Elizabeth Kent MD IMG BI PROCEDURES Final Resul t * Hepatitis C Antibody with Reflex to HCV, RNA, Quantitative, Real-Time PCR (02/29/2024 9:45 AM EDT) Hepatitis C Antibody Nonreactive Nonreactive [facility] Comment:Antibodies to HCV no t detected; does not exclude early acuteHCV infection. Blood Venous blood specimen / Unknown 02/29/2024 9:45 AM EDT 02/29/2024 2:28 PM EDT Nicki Hickey MD LAB BLOOD ORDERABLES Final Resul t [facility] [address] [place] [address] [phone] * THINPREP PAP (06/09/2020 3:38 PM EDT) Clinical Information: SEE COMMENT [facility] Comment:None given COMMENT SEE COMMENT [facility] Comment: EXPLANATORY NOTE: The Pap is a screening test for cervical cancer. It is not a diagnostic test and is subject to false negative and false positive results. It is most reliable when a satisfactory sample, regularly obtained, is submitted with relevant clinical findings and history, and when the Pap result is evaluated along with historic and current clinical information. Furniture Crater: SEE COMMENT [facility] Comment: GSG, CT(ASCP) CT screening location: [address] [address] Interpretation/Resu lt: SEE COMMENT [facility] Comment:Negative for intraep ithelial lesion or malignancy. LMP: SEE COMMENT [facility] Comment:05/13/20 PATHOLOGIST: SEE COMMENT [facility] Comment: Micheal Cruz M.D., Direct , Board Certified in Anatomic Pathology and Cytopathology (electronic signature) Consulting Pathologist [facility] [address] [place] [address] Prev. BX: NONE GIVEN [facility] Prev. PAP: SEE COMMENT [facility] Comment:NONE GIVEN SOURCE: SEE COMMENT [facility] Comment:None given Statement Of Adequacy: SEE COMMENT [facility] Comment: Satisfactory for evaluation. Endocervical/transformation zone component absent. 06/09/2020 3:38 PM EDT Stacy Santiago [facility] PATHOLOGY ORDERABLES Final Result Performing Organization Address [facility] de Phone Number [facility] [address] * HPV mRNA E6/E7 (06/09/2020 3:38 PM EDT) Pathologist [facility] HPV nRNA E6/E7 Not Detected Not Detected [facility] Comment: This test was performed using the APTIMA HPV Assay ([employer] This assay detects E6/E7 viral messenger RNA (mRNA) from 14 high-risk HPV types (16,18,31,33,35,39,45,51,52,56,58,59,66,68). The analytical performance characteristics of this assay have been determined by [employer]. The modifications have not been cleared or approved by the FDA. This assay has been validated pursuant to the CLIA regulations and is used for clinical purposes. 06/09/2020 3:38 PM EDT Stacy Santiago [facility] BLOOD ORDERABLES Francia l Result Performing Organization Address [facility] Co de Phone Number [facility] [address] from Last 3 Months or Most Recently Relevant to Health Maintenance Insurance HSN PARTIAL DENTAL - HSN PARTIAL (MEDICAID) TRAVELERS INSURANCE Care Teams Substation Operator Helper Generation Relationship Specialty Start Date End Date Nicki Hickey MD [address] [place] [phone] PCP - General Family Medicine 11/01/13
--- OUTSIDE RECORDS SUMMARY | 2025-06-12 18:52 | XMS_ITS | Encounter Summary ---
Author Organization [employer] Address 75 [facility] 7t [place] [address] Care Team Providers Care Rn Ent Name Role Phone Nicki Hickey MD Primary Care Provider [phone] Encounter Details Date Type Department Care Team (Latest Contact Info) Description 07/27/2021 Abstract [facility] CONVERSIONS Dental, Provider, DDS Social History Tobacco Use Types Packs/Day Years Used Date Smoking Tobacco: Never Assessed Comments Unknown Sex and Gender Information Value Date Recorded Sex Assigned at Female 08/01/2022 10:16 AM EDT Legal Sex Female 10:16 AM EDT Gender Identity Female 08/01/2022 10:16 AM EDT Sexual Orientation Straight 08/01/2022 10 :16 AM EDT documented as of this encounter Plan of Treatment Not on file documented as of this encounter Visit Diagnoses Not on filedocumented in this encounter Care Teams Rn Ent Relationship Specialty Start Date End Date Nicki Hickey MD [address] [place] [phone] PCP - General Family Medicine 11/01/13 documented as of this encounter
[2025-06-13 08:55] LABS: Syphilis Screen Nonreactive (Nonreactive)
[2025-06-13 08:56] LABS: HBS Num1 > 1000.00 mIU/mL (0-7.99); HBsAGNum1 0.40 S/CO (0.00-0.99); HIV Num 1 0.07 S/CO (0.00-0.99); Hepatitis B Surface Antigen Negative (Negative); ~HepC Num1 0.11 S/CO (0.00-0.79); ~Hepatitis B Surface Antibody REACTIVE (Nonreactive); ~Hepatitis C Antibody Nonreactive (Nonreactive)
== END 2025-06-12 15:57 | disposition home or self-care (01) ==
LOC: HO.CHCLDS 15:56
PROVIDERS: Visit Provider Family Medicine
DX: S61.239A Puncture wound without foreign body of unspecified finger without damage to nail, initial encounter (principal); W46.0XXA Contact with hypodermic needle, initial encounter; Z57.9 Occupational exposure to unspecified risk factor
CPT/HCPCS: 36415; 80076; 86706; 86780; 86803; 87340; 87389

== ENCOUNTER 2025-07-25 12:34 | Outpatient (REF) | payer SELFPAY ==
--- OUTSIDE RECORDS SUMMARY | 2025-07-25 14:33 | XMS_ITS | Encounter Summary ---
Author Organization [employer] Address 75 [facility] 7t [place] [address] Care Team Providers Care Form Grader Name Role Phone Nicki Hickey MD Primary Care Provider [phone] Reason for Visit * Reason Onset Date Comments Care Coordination 07/21/2025 Encounter Details Date Type Department Care Team ([facility] Contact Info) Description 07/21/2025 Telephone [facility] [address] [place] [address] Nicki Hickey MD [address] [place] [address] Care Coordination Social History Tobacco Use Types Packs/Day Years [...] encounter Miscellaneous Notes * Telephone Encounter - Carmen Booker RN - 07/21/2025 10:22 AM EDT TC to pt. No answer and answering message states that caller is not available and unable to leave VM and call disconnected. Second attempt. TC to pt. No answer. Able to leave VM and VM left informing of additional lab orders placed and request to complete them and request to return call to office to schedule TP appointment. documented in this encounter Plan of Treatment Upcoming Encounters Date Type Department Care Team (Late st Contact Info) Description 08/06/2025 2:30 PM EST Office Visit [facility] [address] [place] [address] Martin Soto DDS [address] [place] [address] 08/12/2025 10:00 AM EST Procedure Visit [facility] [address] [place] [address] Ewa Oliveros MD [address] [place] [address] 12/16/2025 2:00 PM EDT Office Visit [facility] [address] [place] [address] Rizwan Glover documented as of this encounter Visit Diagnoses Not on filedocumented in this encounter Additional Health Concerns Assessment Noted Time PHQ-9 Depression Total Score: 3 02/29/20 24 9:15 AM EDT documented as of this encounter Care Teams Form Grader Relationship Specialty Start Date End Date Nicki Hickey MD [address] [place] [address] PCP - General Family Medicine 11/01/13 documented as of this encounter
--- OUTSIDE RECORDS SUMMARY | 2025-07-25 14:33 | XMS_ITS | Clinical Summary ---
Author Organization [facility] Address [address] [place] [address] Care Team Providers Care Fixture Builder Name Role Phone Nicki Hickey Primary Care Provider [phone] Allergies No known active allergies Medications dilTIAZem [...] Health Maintenance Due Date Last Done Comments Cervical Cancer Screening 1971 Cologuard 1971 Colon Cancer Screening 1971 Colonoscopy 1971 FOBT / Fit Test 1971 HIV Screening 1971 HPV and Pap Smear 1971 Pap Smear 1971 Sigmoidoscopy 1971 Hepatitis B Vaccines (1 of 3 - 19+ 3-dose series) 1990 DTaP,Tdap,and Td Vaccines (1 - Tdap) 1993 Mammogram 2011 Pneumococcal Vaccine: 50+ Ye ars (1 of 1 - PCV) 2021 Zoster Vaccines (1 of 2) 2021 Alcohol/Substance Use Screening 10/02/2024 COVID-19 Vaccine (4 - 2024-2 6 season) 2025 10/04/2021, 02/01/2021, 01/11/2021 Influenza Vaccine (#1) 2025 , 10/22/2020, 07/24/2015, Additional history exists RSV Vaccine (60+ years old a nd patients) (1 - 1-dose 75+ series) 2046 Insurance HSNO/FREE CARE Care Teams Fixture Builder Relationship Specialty Start Date End Date Nicki Hickey [address] [place] [id number] PCP - General Family Medicine 07/30/21
--- OUTSIDE RECORDS SUMMARY | 2025-07-25 14:33 | XMS_ITS | Clinical Summary ---
Author Organization [employer] Address [address] [facility] 7t [place] [address] Care Team Providers Care Aircraft Mechanic Armament Name Role Phone Nicki Hickey MD Primary Care Provider [phone] Allergies No known active allergies Medications Sodium Fluoride 1.1 % creamIndications :Dentin hypersensitivity ,Dental caries [place] teeth for 2 minutes, morning and night. Spit, do not rinse. Do not eat or drink anything for 30 minutes following use. 112 g 3 5 Active bictegravir-emtr icitab-tenofovir (Biktarvy) 50-200-25 MG tabletIndication s:Occupational exposure in workplace,Hypode rmic needlestick injury of finger Take 1 tablet by mouth Once per day for 28 days. Initiate therapy within 72 hours of exposure 28 tablet 5 07/09/20 25 Active Problems Problem Noted Date Diagnosed Date Palpitations 09/22/2021 Resolved Problems Problem Noted Date Diagnosed Date Resolved Date Pain of breast 2012 02/29/2024 Encounters Date Type Department Care Team Description 07/21/2025 Telephone [facility] MED & PEDS [address] [place] [address] Nicki Hickey MD Care Coordination 07/03/2025 2:30 PM EDT Office Visit [facility] ADULT DENTAL [address] [place] [address] Martin Soto DDS 06/27/2025 2:30 PM EDT Office Visit [facility] ADULT DENTAL [address] [place] [address] Martin Soto DDS 06/19/2025 Telephone [facility] [address] [place] [phone] Arun Peterson MD 06/19/2025 Telephone [facility] [address] [place] [phone] Arun Peterson MD 06/17/2025 2:00 PM EDT Office Visit [facility] ADULT DENTAL [address] [place] [address] Rizwan Glover Dental calculus (Primary Dx); Dentin hypersensitivity; Dental caries 06/14/2025 Telephone [facility] [address] [place] [phone] Arun Peterson MD 06/11/2025 6:00 PM EDT Office Visit [facility] [address] [place] [phone] Arun Peterson MD Occupational exposure in workplace (Primary Dx); Hypodermic needlestick injury of finger 06/11/2025 Telephone [facility] [address] [place] [address] Arun Peterson MD 06/11/2025 Travel from Last 3 Months Immunizations Immunization Administration [...] Sign Reading Time Taken Comments Blood Pressure 100/68 07/03/2025 2:42 PM EDT Pulse 65 06/17/2025 2:09 PM EDT Temperature 36.1 C (96.9 F) 06/11/2025 5:56 PM EDT Respiratory Rate 20 06/11/2025 5:56 PM EDT Oxygen Saturation 98% 06/11/2025 5:56 PM EDT Inhaled Oxygen Concentration - - Weight 52.9 kg (116 lb 9.6 oz) 06/11/2025 5:56 P M EDT Height 147.3 cm (4' 10 ) 06/11/2025 5:56 PM EDT Body Mass Index 24.37 06/11/2025 5:56 PM EDT Plan of Treatment Upcoming Encounters Date Type Department Care Team (Late st Contact Info) Description 08/06/2025 2:30 PM EST Office Visit [facility] ADULT DENTAL [address] [place] [address] Martin Soto DDS [address] [place] [address] 08/12/2025 10:00 AM EST Procedure Visit [facility] MED & PEDS [address] [place] [address] Ewa Oliveros MD [address] [place] [address] 12/16/2025 2:00 PM EDT Office Visit [facility] ADULT DENTAL [address] [place] [address] Rizwan Glover Health Maintenance Due Date Last Done Comments CT Colonography 1971 Colonoscopy 1971 Colorectal Cancer Screening 1971 FIT DNA/Cologuard 1971 FIT 1971 FOBT 1971 Sigmoidoscopy 1971 Disability Screening 1971 Alcohol/Substance Use Screening 1983 Pneumococcal Vaccine: 50+ Years (1 of 1 - PCV) 2021 Hepatitis B Vaccines (2 of 3 - 19+ 3-dose series) 04/19/2024 03/22/2024 Depression Screening 02/28/2025 02/29/2024, 02/29/20 24 SDOH Screening 02/28/2025 02/29/2024 COVID-19 Vaccine ( season) 2025 03/22/2024, 08/01/2022, 10/04/2021, Additional history exists Influenza Vaccine (#1) 2025 2, 07/16/2021, 10/22/2020, Additional history exists Cervical Cancer Screening 06/09/2025 HPV/Cotest 06/09/2025 06/09/2020, 05/02/2017 Pap Smear 06/09/2025 06/09/2020 Dental Oral Exam 12/16/2025 06/17/2025, 04/12/2024 Dental Prophylaxis 12/16/2025 06/17/2025, 0 10/23/2024, 04/12/2024 Dental X-Ray: Bitewings 06/18/2026 06/17/2025, 04/12 Tobacco Screening 07/03/2026 07/03/2025 Mammogram 02/27/2027 02/27/2025, 08/03, 08/06/2024, Additional history exists Dental X-Ray: Full Mouth 04/13/2027 04/12/2024 DTaP/Tdap/Td Vaccines (2 - Td or Tdap) 03/22/2034 03/22/2024, 02/29/2024 RSV Patients and Patients Aged 60 years or older (1 - 1-dose 75+ series) 2046 Zoster Vaccines Completed 01/17/2024, 07/18/2022 HIV Screening Completed 06/12/2025 Hepatitis C Screening Completed 06/12/2025, 024 HIB Vaccines Aged Out No longer eligi [...] Procedure Name Priority Date/Time Associated Diagnosis Comments CASE PRESENTATION, DETAILED AND EXTENSIVE TREATMENT PLANNING Routine 07/03/2025 2:30 PM EDT 5 DO RESIN-BASED COMPOSITE - 2 SURF, POSTERIOR Routine 07/03/2025 2:30 PM EDT CASE PRESENTATION, DETAILED AND EXTENSIVE TREATMENT PLANNING Routine 06/27/2025 2:30 PM EDT 4 MOD RESIN-BASED COMPOSITE - 3 SURF, POSTERIOR Routine 06/27/2025 2:30 PM EDT PERIODIC ORAL EVALUATION - ESTABLISHED PATIENT Routine 06/17/2025 2:00 PM EDT Dental caries INTRAORAL - PERIAPICAL EACH ADDITIONAL RADIOGRAPHIC IMAGE Routine 06/17/2025 2:00 PM EDT Dental caries INTRAORAL - PERIAPICAL FIRST RADIOGRAPHIC IMAGE Routine 06/17/2025 2:00 PM EDT Dental caries BITEWINGS - 4 RADIOGRAPHIC IMAGES Routine 06/17/2025 2:00 PM EDT Dental caries ORAL HYGIENE INSTRUCTIONS Routine 06/17/2025 2:00 PM EDT Dental caries CASE PRESENTATION, DETAILED AND EXTENSIVE TREATMENT PLANNING Routine 06/17/2025 2:00 PM EDT Dental caries PROPHYLAXIS - ADULT Routine 06/17/2025 2 :00 PM EDT Dental caries 6 L COMPOSITE FILLING Routine 06/17/2025 12:00 AM EDT 17 M COMPOSITE FILLING Routine 12:00 AM EDT 12 MOD COMPOSITE FILLING Routine 06/17/2025 12:00 AM EDT 2 PREFABRICATED POST AND CORE IN ADDITION TO CROWN Routine 06/17/2025 12:00 AM EDT 31 O AMALGAM FILLING Routine 06/17/2025 12:00 AM EDT SYPHILIS SCREEN Routine 06/12/2025 3:58 PM EDT Occupational exposure in workplace Hypodermic needlestick injury of finger HEPATITIS C AB W/REFL TO HCV RNA, QN, PCR Routine 06/12/2025 3:58 PM EDT Occupational exposure in workplace Hypodermic needlestick injury of finger HEPATITIS B SURFACE ANTIGEN, EIA Routine 06/12/2025 3:58 PM EDT Occupational exposure in workplace Hypodermic needlestick injury of finger HEPATITIS B SURFACE ANTIBODY, QUALITATIVE Routine 06/12/2025 3:58 PM EDT Occupational exposure in workplace Hypodermic needlestick injury of finger HIV 1/2 ANTIGEN/ANTIBODY, FOURTH GENERATION W/RFL Routine 06/12/2025 3:58 PM EDT Occupational exposure in workplace Hypodermic needlestick injury of finger HEPATIC FUNCTION PANEL Routine 3:38 PM EDT Occupational exposure in workplace Hypodermic needlestick injury of finger BI MAMMOGRAM DIAGNOSTIC TOMOSYNTHESIS RIGHT Routine 02/27/2025 10:40 AM EDT INTRAORAL - COMPLETE SERIES OF RADIOGRAPHIC IMAGES Routine 04/12/2024 3:00 PM EDT HPV MRNA E6/E7 Routine 06/09/2020 3:38 PM EDT THINPREP PAP Routine 06/09/2020 3:38 PM EDT from Last 3 Months or Most Recently Relevant to Health Maintenance Results * Syphilis Screen (06/12/2025 3:58 PM EDT) Syphilis Screen Nonreactive Nonreactive [facility] Blood 06/12/2025 3:58 PM EDT 06/12/2025 5:29 PM EDT us Arun Peterson MD LAB BLOOD ORDERABLES Final Resul t Performing Organization Address [facility] Co de Phone Number [facility] [address] [place] [phone] * Hepatitis C Antibody with Reflex to HCV, RNA, Quantitative, Real-Time PCR (06/12/2025 3:58 PM EDT) Hepatitis C Antibody Nonreactive Nonreactive [facility] Comment:Antibodies to HCV no t detected; does not exclude early acuteHCV infection. Blood Venous blood specimen / Unknown 06/12/2025 3:58 PM EDT 06/12/2025 5:29 PM EDT us Arun Peterson MD LAB BLOOD ORDERABLES Final Resul t [facility] [address] [place] [phone] [phone] * Hepatitis B surface antigen, EIA (06/12/2025 3:58 PM EDT) Pathologist [facility] [place] Hepatitis B Surface Ag Negative Negative [facility] Blood Venous blood specimen / Unknown 06/12/2025 3:58 PM EDT 06/12/2025 5:29 PM EDT Arun Peterson MD LAB BLOOD ORDERABLES Final Resul t Performing Organization Address City/[facility]/ZIP Co de Phone Number [facility] [address] [place] [phone] * HIV-1/2 Antigen and Antibodies, Fourth Generation, with Reflexes (06/12/2025 3:58 PM EDT) [facility] HIV AB/AG Nonreactive Nonreactive [facility] Comment:HIV-1 p24 Ag and/or HIV-1/HIV-2 Ab not detected.A test result that is nonreactive does not exclude thepossibility of exposure to or infection with HIV-1 and/orHIV-2. Nonreactive results in this assay for individualswith prior exposure to HIV-1 and/or HIV-2 may be due toantigen and antibody levels that are below the limit ofdetection of this assay.The [email or web address] HIV Ag/Ab Combo assay result andsupplemental assay results should be interpreted inconjunction with the patient's clinical presentation,history and other laboratory results. If the results areinconsistent with clinical evidence, additional testing issuggested to confirm the result. Blood Venous blood specimen / Unknown 06/12/2025 3:58 PM EDT 06/12/2025 5:29 PM EDT Arun Peterson MD LAB BLOOD ORDERABLES Final Resul t Performing Organization Address City/[facility]/ZIP Co de Phone Number [facility] [address] [place] [phone] * Hepatitis B Surface Antibody, Qualitative (06/12/2025 3:58 PM EDT) ~Hepatitis B Surface Antibody REACTIVE Nonreactive [facility] Comment:REACTIVE: > 11.99 mI U/mL Blood Venous blood specimen / Unknown 06/12/2025 3:58 PM EDT 06/12/2025 5:29 PM EDT Arun Peterson MD LAB BLOOD ORDERABLES Final Resul t Performing Organization Address City/[facility] Co de Phone Number [facility] [address] [place] [phone] * Hepatic Function Panel (06/12/2025 3:38 PM EDT) Pathologist [facility] [place] Bilirubin, Total 0.9 0.0 - 1.0 mg/dL [facility] Bilirubin, Direct 0.2 0.0 - 0.5 mg/dL [facility] Aspartate Amino Transferase 26 5 - 31 U/L [facility] Alanine Aminotransferase 22 0 - 31 U/L [facility] Total Protein 7.2 6.5 - 8.0 g/dL [facility] Albumin Level 4.4 3.5 - 5.0 g/dL [facility] Alkaline Phosphatase 73 39 - 117 U/L [facility] Blood Venous blood specimen / Unknown 06/12/2025 3:38 PM EDT 06/12/2025 5:29 PM EDT Arun Peterson MD LAB BLOOD ORDERABLES Final Resul t Performing Organization Address [facility] de Phone Number [facility] [address] [place] [phone] * BI Mammogram Diagnostic Tomosynthesis Right (02/27/2025 10:40 AM EDT) Anatomical Region Laterality Modality Breast Right Mammography 02/27/2025 10:4 0 AM EDT Narrative 02/27/2025 11:26 AM EDT [facility] [address] [place], [place] [address] Mammography Report Signed Patient: Nusrat Conte MR#: [id number] : 1970 Acct:[id number] Age/Sex: 54 / F ADM Date: 02/27/25 Loc: .MAMMO Attending Dr: Elizabeth Kent MD Ordering Physician: Elizabeth Kent MD Results: 3.6MProbably Benign Finding - Short 6 M F/U Suggested Date of Service: 02/27/25 Follow Up: 6 Month F/U Procedure(s): MM tomosynthesis diagnostic RT Accession Number(s): [id number] cc: Elizabeth Kent MD EXAMINATION: MM DIAGNOSTIC [...] 02/27/25 1123 DD/ 1040 TD/TT: 02/27/25 1050 Senior Sales Manager: Procedure Note Donotuseinterpreter, Image - 02/27/2025 [facility] [address] [place] [address] Mammography Report Signed Patient: Nusrat Conte LMR#: [id number] : 1970Acct:[id number] Age/Sex: 54 / FADM Date: 02/27/25 Loc: HO.MAMMO Attending Dr: Elizabeth Kent MD Ordering Physician: Elizabeth Kent MD Results: 3.6MProbably Benign Finding - Short 6 M F/U Suggested Date of Service: 02/27/25Follow Up: 6 Month F/U Procedure(s): MM tomosynthesis diagnostic RT Accession Number(s): [id number] cc: Elizabeth Kent MD EXAMINATION: MM DIAGNOSTIC [...] DO 02/27/2025 11:23 AM EDT RP Workstation: [email or web address] Dictated By: Consuelo Felix DO Signed By: <Electronically signed by Consuelo Felix DO in OV> 02/27/25 1123 DD/ 1040 TD/TT: 02/27/25 1050 Senior Sales Manager: us Elizabeth Kent MD IMG BI PROCEDURES Final Resul t * THINPREP PAP (06/09/2020 3:38 PM EDT) Clinical Information: SEE COMMENT [facility] Comment:None given COMMENT SEE COMMENT [...] along with historic and current clinical information. Dining Room Helper: SEE COMMENT [facility] Comment: GSG, CT(ASCP) CT screening location: [place] [address] Interpretation/Resu lt: SEE COMMENT [facility] Comment:Negative for intraep ithelial lesion or malignancy. LMP: SEE COMMENT [facility] Comment:05/13/20 PATHOLOGIST: SEE COMMENT [facility] Comment: Micheal Cruz M.D., Direct , Board Certified in Anatomic Pathology and Cytopathology (electronic signature) Consulting Pathologist [facility] [address] [place] [address] Prev. BX: NONE GIVEN [facility] Prev. PAP: SEE COMMENT [facility] Comment:NONE GIVEN SOURCE: SEE COMMENT [facility] Comment:None given Statement Of Adequacy: SEE COMMENT [facility] Comment: Satisfactory for evaluation. Endocervical/transformation zone component absent. 06/09/2020 3:38 PM EDT Stacy JOSEPH LAB PATHOLOGY ORDERABLES Final Result Performing Organization Address [facility] de Phone Number [facility] [address] * HPV mRNA E6/E7 (06/09/2020 3:38 PM EDT) HPV nRNA E6/E7 Not Detected Not Detected [facility] Comment: This test was performed using the APTIMA HPV Assay ([employer] This assay detects E6/E7 viral messenger RNA (mRNA) from 14 high-risk HPV types (16,18,31,33,35,39,45,51,52,56,58,59,66,68). The analytical performance characteristics of this assay have been determined by [employer]. The modifications have not been cleared or approved by the FDA. This assay has been validated pursuant to the CLIA regulations and is used for clinical purposes. 06/09/2020 3:38 PM EDT Stacy JOSEPH LAB BLOOD ORDERABLES Francia l Result Performing Organization Address [facility] de Phone Number [facility] [address] from Last 3 Months or Most Recently Relevant to Health Maintenance Insurance HSN PARTIAL DENTAL - HSN PARTIAL (MEDICAID) TRAVELERS INSURANCE Care Teams Aircraft Mechanic Armament Relationship Specialty Start Date End Date Nicik Hickey MD [address] [place] [phone] PCP - General Family Medicine 11/01/13
--- OUTSIDE RECORDS SUMMARY | 2025-07-25 14:33 | XMS_ITS | Encounter Summary ---
Author Organization [employer] Address [address] [place] [address] [address] [place] [address] Care Team Providers Care Licensed Guide Name Role Phone Nicki Hickey MD Primary Care Provider [phone] Encounter Details Date Type Department Care Team (Latest Contact Info) Description 07/27/2021 Abstract [facility] CONVERSIONS Dental, Provider, DDS Social [...] as of this encounter Plan of Treatment Upcoming Encounters Date Type Department Care Team ([facility] Contact Info) Description 08/06/2025 2:30 PM EST Office Visit [facility] ADULT DENTAL [address] [place] [address] Martin Soto DDS [address] [place] [address] 08/12/2025 10:00 AM EST Procedure Visit [facility] MED & PEDS [address] [place] [address] Ewa Oliveros MD [address] [place] [address] 12/16/2025 2:00 PM EDT Office Visit [facility] ADULT DENTAL [address] [place] [address] Beauzile, Rizwan documented as of this encounter Visit Diagnoses Not on filedocumented in this encounter Care Teams Licensed Guide Relationship Specialty Start Date End Date Nicki Hickey MD [address] [place] [phone] PCP - General Family Medicine 11/01/13 documented as of this encounter
[2025-07-25 15:40] LABS: Alanine Aminotransferase 27 U/L (0-31); Albumin Level 4.2 g/dL (3.5-5.0); Alkaline Phosphatase 74 U/L (39-117); Aspartate Amino Transferase 25 U/L (5-31); Total Protein 6.9 g/dL (6.5-8.0)
[2025-07-26 03:32] LABS: Syphilis Screen Nonreactive (Nonreactive)
[2025-07-26 04:04] LABS: HBsAGNum1 0.42 S/CO (0.00-0.99); HIV Num 1 0.06 S/CO (0.00-0.99); Hepatitis B Surface Antigen Negative (Negative); ~HepC Num1 0.08 S/CO (0.00-0.79); ~Hepatitis C Antibody Nonreactive (Nonreactive)
== END 2025-07-25 12:35 | disposition home or self-care (01) ==
LOC: HO.CHCLDS 12:34
PROVIDERS: Visit Provider Family Medicine
DX: S61.239A Puncture wound without foreign body of unspecified finger without damage to nail, initial encounter (principal); Z57.9 Occupational exposure to unspecified risk factor; Z11.59 Encounter for screening for other viral diseases; Z11.4 Encounter for screening for human immunodeficiency virus [HIV]; W46.0XXA Contact with hypodermic needle, initial encounter
CPT/HCPCS: 36415; 80076; 86780; 86803; 87340; 87389

== ENCOUNTER 2025-07-28 11:43 | Outpatient (REF) | payer SELFPAY ==
--- NOTE | ~2025-07-28 | XR_ITS ---
EXAMINATION: XR SHOULDER, RIGHT CLINICAL INFORMATION: atraumatic right shoulder COMPARISON: None available. TECHNIQUE: AP external rotation, Grashey, scapular Y, and axillary views of the right shoulder. FINDINGS: No acute cortical disruption or malalignment. No lytic or blastic lesions. Mild sclerosis along the greater tuberosity. Questionable subtle calcification at the lateral margin of the greater tuberosity. No lytic or blastic lesions. XR/XR shoulder RT min 2V IMPRESSION: Mild degenerative changes with questionable calcific tendinosis/tendinopathy, supraspinatus. Electronically signed by: Rylan Blanco MD 07/28/2025 12:52 PM EDT
--- OUTSIDE RECORDS SUMMARY | 2025-07-28 11:00 | XMS_ITS | Encounter Summary ---
Author Organization [employer] Address [address] [facility] 7[address] [place] [address] Care Team Providers Care Physicist Solid Earth Name Role Phone Nicki Hickey MD Primary Care Provider [phone] Reason for Referral * Consultation (STAT) - Pending Review Specialty Diagnoses / Procedures Referred By Miguel A odell Referred To Contact Orthopaedic Surgery Diagnoses Acute pain of right shoulder Edwar Coughlin MD [address] [place] [address] Phone: tel: fax: Referral ID Status Reason Start Date Expiration Date Visits Requested Visits Authorized [id number] Pending Review Specialty Services Required 07/28/2026 1 1 Reason for Visit * Reason Comments Shoulder Pain Encounter Details Date Type Department Care Team ([facility] st Contact Info) Description 07/28/2025 11:00 AM EDT Office Visit [facility] [address] [place] [id number] Edwar Coughlin MD [address] [place] [address] Acute pain of right shoulder (Primary Dx) Social History Tobacco Use Types Packs/Day Years [...] Sign Reading Time Taken Comments Blood Pressure 130/76 07/28/2025 11:33 AM EDT Pulse 89 07/28/2025 11:33 AM EDT Temperature 36.8 C (98.2 F) 07/28/2025 11:33 AM EDT Respiratory Rate 16 07/28/2025 11:33 AM EDT Oxygen Saturation 99% 07/28/2025 11:33 AM EDT Inhaled Oxygen Concentration - - Weight 52.6 kg (116 lb) 07/28/2025 11:33 AM EDT Height - - Body Mass Index 24.24 06/11/2025 5:56 PM EDT documented in this encounter Progress Notes * Edwar Coughlin MD - 07/28/2025 11:00 AM EDT Subjective Patient ID: Nusrat Conte is a 55 y.o. female. Shoulder Pain Associated symptoms: no abdominal pain, no chest pain, no fever, no headaches, no rash and no shortness of breath Nusrat developed atraumatic right anterior shoulder pain 2 days ago at the end of her work shift. 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 The pain is worse on any range of motion of the right shoulder. Having difficulty sleeping at nightwhen she changes position in bed. No trauma, joint swelling, fever, chills, rash, tick bite, family history of gout. Tried OTC lidocaine patches, ibuprofen with little relief. No previous similar symptoms. Right-handed. Lives with and 2 sons. 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 Never smoked. Patient Active Problem List Diagnosis Date Noted Palpitations 09/22/2021 The following portions of the chart were reviewed this encounter and updated as appropriate: Review of Systems Constitutional: Negative for fever. Respiratory: Negative for shortness of breath. Cardiovascular: Negative for chest pain. Gastrointestinal: Negative for abdominal pain. Musculoskeletal: Positive for arthralgias. Skin: Negative for rash. Neurological: Negative for headaches. Objective Physical Exam Constitutional: Appearance: Normal appearance. HENT: Nose: Nose normal. Eyes: Conjunctiva/sclera: Conjunctivae normal. Pupils: Pupils are equal, round, and reactive to light. Cardiovascular: Rate and Rhythm: Normal rate and regular rhythm. Pulses: Radial pulses are 2+ on the right side. Heart sounds: No murmur heard. Pulmonary: Effort: Pulmonary effort is normal. Breath sounds: Normal breath sounds. Musculoskeletal: General: Normal range of motion. Cervical back: No tenderness. Comments: Right shoulder: Point tenderness anteriorly. Abduction limited to 90 degrees due to pain. Skin: Findings: No rash. Neurological: Mental Status: She is alert. Sensory: Sensation is intact. Motor: Motor function is intact. Gait: Gait is intact. Psychiatric: Mood and Affect: Mood normal. Behavior: Behavior normal. Procedures Assessment/Plan Diagnoses and all orders for this visit: Acute pain of right shoulder Presumptive tendinitis or bursitis. Advised to continue ice or heat whichever feels best. Prescribed lidocaine patches, ibuprofen, acetaminophen, tizanidine. Placed in right shoulder sling. Advised to remove sling several times a day for range of motion to avoid frozen shoulder. Given work note. Right shoulder x-rays done in walk-in clinic reviewed by me appears to show a subtle calcification just lateral to the humeral head. Referred to orthopedic surgery. - XR Shoulder 2+ Views Right; Future Other orders - lidocaine (Lidoderm) 5 % patch; Apply 1 patch topically Once per day. Remove & discard patch within 12 hours or as directed by MD. - acetaminophen (Tylenol) 500 MG tablet; Take 2 tablets (1,000 mg) by mouth every 6 (six) hours if needed for moderate pain or fever for up to 25 doses. - ibuprofen 600 MG tablet; Take 1 tablet (600 mg) by mouth if needed in the morning, at noon, and at bedtime for moderate pain or fever for up to 10 days. - tiZANidine (Zanaflex) 2 MG tablet; Take 1 tablet (2 mg) by mouth every 6 (six) hours if needed for muscle spasms for up to 10 days. documented in this encounter Plan of Treatment Upcoming Encounters Date Type Department Care Team (Late st Contact Info) Description 08/06/2025 2:30 PM EST Office Visit [facility] [address] [place] [address] Martin Soto DDS [address] [place] [address] 08/12/2025 10:00 AM EST Procedure Visit [facility] [address] [place] [address] Ewa Oliveros MD [address] [place] [address] 12/16/2025 2:00 PM EDT Office Visit [facility] [address] [place] [address] Rizwan Glover Scheduled Referrals Name Type Priority Associated Diagnoses Order Schedule Referral to Orthopaedic Surgery Outpatient Referral STAT Acute pain of right shoulder Expected: 07/28/2025 (Approximate), Expires: 07/28/2026 documented as of this encounter Procedures Procedure Name Priority Date/Time Associated Diagnosis Comments XR SHOULDER 2+ VIEWS RIGHT Routine 07/28/2025 12:40 PM EDT Acute pain of right shoulder documented in this encounter Results * XR Shoulder 2+ Views Right (07/28/2025 12:40 PM EDT) Anatomical Region Laterality Modality Upper Extremities, Shoulder Right Radi ographic Imaging 07/28/2025 12:4 0 PM EDT Narrative 07/28/2025 12:55 [place] [address] XRay Report Signed Patient: Nusrat Conte MR#: [id number] [id number] : 1970 Acct:[id number] Age/Sex: 55 / F ADM Date: 07/28/25 Loc: .[facility]X Attending Dr: Edwar Coughlin MD Ordering Physician: EDWAR COUGHLIN MD Date of Service: 07/28/25 Procedure(s): XR shoulder RT min 2V Accession Number(s): [id number] cc: EDWAR COUGHLIN MD Reason for Exam: atraumatic right shoulder EXAMINATION: XR SHOULDER, RIGHT CLINICAL INFORMATION: atraumatic right shoulder COMPARISON: None available. TECHNIQUE: AP external rotation, Grashey, scapular Y, and axillary views of the right shoulder. FINDINGS: No acute cortical disruption or malalignment. No lytic or blastic lesions. Mild sclerosis along the greater tuberosity. Questionable subtle calcification at the lateral margin of the greater tuberosity. No lytic or blastic lesions. XR/XR shoulder RT min 2V IMPRESSION: Mild degenerative changes with questionable calcific tendinosis/tendinopathy, supraspinatus. Electronically signed by: Rylan Blanco MD 07/28/2025 12:52 PM EDT RP Dictated By: Rylan Bansal MD Signed By: <Electronically signed by Rylan Wilkins MD in [place]> 07/28/25 1252 DD/ 1240 TD/TT: 07/28/25 1249 Surgical Garment Assembler: Procedure Note Donotuseinterpreter, Image - 07/28/[address] [address] XRay Report Signed Patient: Nusrat Conte LMR#: [id number] : 1970Acct:[id number] Age/Sex: 55 / FADM Date: 07/28/25 Loc: HO.HHCX Attending Dr: Edwar Coughlin MD Ordering Physician: EDWAR COUGHLIN MD Date of Service: 07/28/25 Procedure(s): XR shoulder RT min 2V Accession Number(s): [id number] cc: EDWAR COUGHLIN MD Reason for Exam: atraumatic right shoulder EXAMINATION: XR SHOULDER, RIGHT CLINICAL INFORMATION: atraumatic right shoulder COMPARISON: None available. TECHNIQUE: AP external rotation, Grashey, scapular Y, and axillary views of the right shoulder. FINDINGS: No acute cortical disruption or malalignment. No lytic or blastic lesions. Mild sclerosis along the greater tuberosity. Questionable subtle calcification at the lateral margin of the greater tuberosity. No lytic or blastic lesions. XR/XR shoulder RT min 2V IMPRESSION: Mild degenerative changes with questionable calcific tendinosis/tendinopathy, supraspinatus. Electronically signed by: Rylan Blanco MD 07/28/2025 12:52 PM EDT Dictated By: Rylan Bansal MD Signed By: <Electronically signed by Rylan Wilkins MDin OV> 07/28/25 1252 DD/ 1240 TD/TT: 07/28/25 1249 Surgical Garment Assembler: Edwar Coughlin MD IMG XR PROCEDURES Edited Result - Final documented in this encounter Visit Diagnoses Diagnosis Acute pain of right shoulder- Primary documented in this encounter Additional Health Concerns Assessment Noted Time PHQ-9 Depression Total Score: 3 02/29/20 24 9:15 AM EDT documented as of this encounter Care Teams Physicist Solid Earth Relationship Specialty Start Date End Date Nicki Hickey MD [address] [place] [address] PCP - General Family Medicine 11/01/13 documented as of this encounter
--- OUTSIDE RECORDS SUMMARY | 2025-07-28 15:06 | XMS_ITS | Encounter Summary ---
Author Organization [employer] Address [address] [facility] [address] [place] [address] Care Team Providers Care Taker Off Hemp Fiber Name Role Phone Nicki Hickey MD Primary Care Provider [phone] Reason for Visit * Reason Onset Date Comments Nurse Triage 07/28/2025 Encounter Details Date Type Department Care Team ([facility] Contact Info) Description 07/28/2025 Telephone [facility] MEDICINE [address] [place] [address] Nicki Hickey MD [address] [place] [address] Nurse Triage Social History Tobacco Use Types Packs/Day Years [...] encounter Miscellaneous Notes * Telephone Encounter - Ela Peterson RN - 07/28/2025 9:54 AM EDT Pt scheduled for [facility] at 11:20am, will task to ensure kept appointment. * Telephone Encounter - Yesenia Troncoso - 07/28/2025 8:10 AM EDT Symptoms: Shoulder Pain - Not From Injury, Arm Pain - Not From Injury Outcome: Schedule an urgent appointment (within 1 hour) or talk to a nurse or provider soon Reason: Can't use the shoulder normally The caller accepted this outcome. Contact pt at [phone] documented in this encounter Plan of Treatment Upcoming Encounters Date Type Department Care Team (Late st Contact Info) Description 08/06/2025 2:30 PM EST Office Visit [facility] ADULT [facility] [address] [place] [address] Martin Soto DDS [address] [place] [address] 08/12/2025 10:00 AM EST Procedure Visit [facility] [address] [place] [address] Ewa Oliveros MD [address] [place] [address] 12/16/2025 2:00 PM EDT Office Visit [facility] [address] [place] [address] Rizwan Glover documented as of this encounter Visit Diagnoses Not on filedocumented in this encounter Additional Health Concerns Assessment Noted Time PHQ-9 Depression Total Score: 3 02/29/20 24 9:15 AM EDT documented as of this encounter Care Teams Taker Off Hemp Fiber Relationship Specialty Start Date End Date Nicki Hickey MD [address] [place] [address] PCP - General Family Medicine 11/01/13 documented as of this encounter
--- OUTSIDE RECORDS SUMMARY | 2025-07-28 15:06 | XMS_ITS | Clinical Summary ---
Author Organization [facility] Address [address] [place] [address] Care Team Providers Care Block Breaker Name Role Phone Nicki Hickey Primary Care Provider [phone] Allergies No known active allergies Medications dilTIAZem [...] series) 2046 Insurance HSNO/FREE CARE Care Teams Block Breaker Relationship Specialty Start Date End Date Nicki Hickey [address] [place] [address] PCP - General Family Medicine 07/30/21
--- OUTSIDE RECORDS SUMMARY | 2025-07-28 15:07 | XMS_ITS | Encounter Summary ---
Author Organization [employer] Address [address] [facility] [address] [place] [address] Care Team Providers Care Billet Driller Name Role Phone Nicki Hickey MD Primary Care Provider [phone] Encounter Details Date Type Department Care Team (Latest Contact Info) Description 07/28/2025 Travel Social History Tobacco Use Types Packs/Day [...] Description 08/06/2025 2:30 PM EST Office Visit [facility] AD[facility] [address] [place] [address] Martin Soto DDS [address] [place] [address] 08/12/2025 10:00 AM EST Procedure Visit [facility] [address] [place] [address] Ewa Oliveros MD [address] [place] [address] 12/16/2025 2:00 PM EDT Office Visit [facility] ADULT D[facility] [address] [place] [address] Rizwan Glover documented as of this encounter Visit Diagnoses Not on filedocumented in this encounter Additional Health Concerns Assessment Noted Time PHQ-9 Depression Total Score: 3 02/29/20 24 9:15 AM EDT documented as of this encounter Care Teams Billet Driller Relationship Specialty Start Date End Date Nicki Hickey MD [address] [place] [address] PCP - General Family Medicine 11/01/13 documented as of this encounter
--- OUTSIDE RECORDS SUMMARY | 2025-07-28 15:07 | XMS_ITS | Encounter Summary ---
Author Organization [employer] Address [address] [place] [address] 7[address] [place] [address] Care Team Providers Care Metal Ceiling Builder Name Role Phone Nicki Hickey MD Primary Care Provider [phone] Encounter Details Date Type Department Care Team (Latest Contact Info) Description 07/27/[address] [facility] CONVERSIONS Dental, Provider, DDS Social History Tobacco [...] Upcoming Encounters Date Type Department Care Team ([facility] Contact Info) Description 08/06/2025 2:30 PM EST Office Visit [facility] [address] [place] [address] Martin Soto DDS [address] [place] [address] 08/12/2025 10:00 AM EST Procedure Visit [facility] [address] [place] [address] Ewa Oliveros MD [address] [place] [address] 12/16/2025 2:00 PM EDT Office Visit [facility] [address] [place] [address] Beauzile, Rizwan documented as of this encounter Visit Diagnoses Not on filedocumented in this encounter Care Teams Metal Ceiling Builder Relationship Specialty Start Date End Date Nicki Hickey MD [address] [place] [address] PCP - General Family Medicine 11/01/13 documented as of this encounter
--- OUTSIDE RECORDS SUMMARY | 2025-07-28 15:07 | XMS_ITS | Clinical Summary ---
Author Organization [employer] Address [address] [facility] 7[address] [place] [address] Care Team Providers Care Actuarial Associate Name Role Phone Nicki Hickey MD Primary Care Provider [phone] Allergies No known active allergies Medications Sodium Fluoride 1.1 % creamIndications :Dentin hypersensitivity ,Dental caries [place] teeth for 2 minutes, morning and night. Spit, do not rinse. Do not eat or drink anything for 30 minutes following use. 112 g 3 5 Active lidocaine (Lidoderm) 5 % patch Apply 1 patch topically Once per day. Remove & discard patch within 12 hours or as directed by MD. 30 patch 2 5 07/28/20 26 Active acetaminophen (Tylenol) 500 MG tablet Take 2 tablets (1,000 mg) by mouth every 6 (six) hours if needed for moderate pain or fever for up to 25 doses. 50 tablet 5 Active ibuprofen 600 MG tablet Take 1 tablet (600 mg) by mouth if needed in the morning, at noon, and at bedtime for moderate pain or fever for up to 10 days. 30 tablet 5 08/07/20 25 Active tiZANidine (Zanaflex) 2 MG tablet Take 1 tablet (2 mg) by mouth every 6 (six) hours if needed for muscle spasms for up to 10 days. 30 tablet 5 08/07/20 25 Active bictegravir-emtr icitab-tenofovir (Biktarvy) 50-200-25 MG tabletIndication [...] Encounters Date Type Department Care Team Description 07/28/2025 11:00 AM EDT Office Visit [facility] [address] [address] Edwar Coughlin MD Acute pain of right shoulder (Primary Dx) 07/28/2025 Travel 07/28/2025 Telephone [facility] [address] [place] [phone] Nicki Hickey MD Nurse Triage 07/26/2025 Results Follow-Up [facility] [address] [address] Arun Peterson MD Hepatitis B surface antigen, EIA, HIV-1/2 Antigen and Antibodies, Fourth Generation, with Reflexes, Hepatitis C Antibody with Reflex to HCV, RNA, Quantitative, Real-Time PCR, Syphilis Screen 07/21/2025 Telephone [facility] [address] [place] [address] Nicki Hickey MD Care Coordination 07/03/2025 2:30 PM EDT Office Visit [facility] [address] [place] [address] Martin Soto DDS 06/27/2025 2:30 PM EDT Office Visit [facility] [address] [place] [address] Martin Soto DDS 06/19/2025 Telephone [facility] [address] [address] Arun Peterson MD 06/19/2025 Telephone [facility] [address] [address] Arun Peterson MD 06/17/2025 2:00 PM EDT Office Visit [facility] [address] [place] [address] Rizwan Glover Dental calculus (Primary Dx); Dentin hypersensitivity; Dental caries 06/14/2025 Telephone [facility] [address] [place] [address] Arun Peterson MD 06/11/2025 6:00 PM EDT [facility] [address] [place] [phone] Arun Peterson MD Occupational exposure in workplace (Primary Dx); Hypodermic needlestick injury of finger 06/11/2025 Telephone [facility] [address] [place] [address] Arun Peterson MD 06/11/2025 Travel from Last [...] your housing situation today? I have tana sing 02/29/[address] you li [...] (116 lb) 07/28/2025 11:33 AM EDT Height 147.3 cm (4' 10 ) 06/11/2025 5:56 PM EDT Body Mass Index 24.24 06/11/2025 5:56 PM EDT Plan of Treatment Upcoming Encounters Date Type Department Care Team (Late st Contact Info) Description 08/06/2025 2:30 PM EST Office Visit [facility] [address] [place] [address] Martin Soto DDS [address] [place] [address] 08/12/2025 10:00 AM EST Procedure Visit [facility] [address] [place] [address] Ewa Oliveros MD [address] [place] [address] 12/16/2025 2:00 PM EDT Office Visit [facility] [address] [place] [address] Rizwan Glover Health Maintenance Due Date Last [...] X-Ray: Bitewings 06/18/2026 06/17/2025, 04/12 Tobacco Screening 07/28/2026 07/28/2025 Mammogram 02/27/2027 02/27/2025, 08/03, 08/06/2024, Additional history exists Dental X-Ray: Full Mouth 04/13/2027 04/12/2024 DTaP/Tdap/Td Vaccines (2 - Td or Tdap) 03/22/2034 03/22/2024, 02/29/2024 RSV Patients and Patients Aged 60 years or older (1 - 1-dose 75+ series) 2046 Zoster Vaccines Completed 01/17/2024, 07/18/2022 HIV Screening Completed 07/25/2025, 06/12/2025 Hepatitis C Screening Completed 07/25/2025 , 06/12/2025, 02/29/2024 HIB Vaccines Aged Out No longer [...] PM EDT Acute pain of right shoulder HEPATIC FUNCTION PANEL Routine 12:36 PM EDT Occupational exposure in workplace Hypodermic needlestick injury of finger SYPHILIS SCREEN Routine 07/25/2025 12:36 PM EDT Occupational exposure in workplace Hypodermic needlestick injury of finger HEPATITIS C AB W/REFL TO HCV RNA, QN, PCR Routine 07/25/2025 12:36 PM EDT Occupational exposure in workplace Hypodermic needlestick injury of finger HIV 1/2 ANTIGEN/ANTIBODY, FOURTH GENERATION W/RFL Routine 07/25/2025 12:36 PM EDT Occupational exposure in workplace Hypodermic needlestick injury of finger HEPATITIS B SURFACE ANTIGEN, EIA Routine 07/25/2025 12:36 PM EDT Occupational exposure in workplace Hypodermic needlestick injury of finger CASE PRESENTATION, DETAILED AND EXTENSIVE TREATMENT PLANNING [...] Recently Relevant to Health Maintenance Results * XR Shoulder 2+ Views Right (07/28/2025 12:40 PM EDT) Anatomical Region Laterality Modality Upper Extremities, Shoulder Right Radi ographic Imaging 07/28/2025 12:4 0 PM EDT Narrative 07/28/2025 12:55 PM EDT [address] [address] XRay Report Signed Patient: Nusrat Conte MR#: [id number] 053 : 1970 Acct:[id number] Age/Sex: 55 / F ADM Date: 07/28/25 Loc: [facility] Attending Dr: Edwar Coughlin MD Ordering Physician: EDWAR COUGHLIN MD Date of Service: 07/28/25 Procedure(s): XR shoulder RT min 2V Accession Number(s): [id number] cc: EDWAR COUGHLIN MD Reason for Exam: [...] 07/28/25 1252 DD/ 1240 TD/TT: 07/28/25 1249 Business Consultant: Procedure Note Donotuseinterpreter, Image - 07/28/2025 [place] [address] XRay Report Signed Patient: Nusrat Conte LMR#: [id number] 053 : 1970Acct:[id number] Age/Sex: 55 / FADM Date: 07/28/25 Loc: [facility] Attending Dr: Edwar Coughlin MD Ordering Physician: EDWAR COUGHLIN MD Date of Service: 07/28/25 Procedure(s): XR shoulder RT min 2V Accession Number(s): [id number] cc: EDWAR COUGHLIN MD Reason for Exam: [...] 07/28/25 1252 DD/ 1240 TD/TT: 07/28/25 1249 Business Consultant: Edwar Coughlin MD IMG XR PROCEDURES Edited Result - Final * Syphilis Screen (07/25/2025 12:36 PM EDT) Only the most recent of2 resultswithin the time period is included. Syphilis Screen Nonreactive Nonreactive [facility] Blood 07/25/2025 12:3 6 PM EDT 07/25/2025 2:20 PM EDT Arun Peterson MD LAB BLOOD ORDERABLES Final Resul t [facility] [address] [place] [phone] * Hepatitis C Antibody with Reflex to HCV, RNA, Quantitative, Real-Time PCR (07/25/2025 12:36 PM EDT) Only the most recent of2 resultswithin the time period is included. Hepatitis C Antibody Nonreactive Nonreactive [facility] Comment:Antibodies to HCV no t detected; does not exclude early acuteHCV infection. Blood Venous blood specimen / Unknown 07/25/2025 12:36 PM EDT 07/25/2025 2:20 PM EDT us Arun Kristen MD LAB BLOOD ORDERABLES Final Resul t Performing Organization Address City/[facility]/ZIP Co de Phone Number [facility] [address] [place] [phone] * Hepatitis B surface antigen, EIA (07/25/2025 12:36 PM EDT) Only the most recent of2 resultswithin the time period is included. Hepatitis B Surface Ag Negative Negative [facility] Blood Venous blood specimen / Unknown 07/25/2025 12:36 PM EDT 07/25/2025 2:20 PM EDT us Arun Peterson MD LAB BLOOD ORDERABLES Final Resul t Performing Organization Address City/[facility] Co de Phone Number [facility] [address] [place] [phone] * HIV-1/2 Antigen and Antibodies, Fourth Generation, with Reflexes (07/25/2025 12:36 PM EDT) Only the most recent of2 resultswithin the time period is included. HIV AB/AG Nonreactive Nonreactive [facility] Comment:HIV-1 p24 Ag and/or HIV-1/HIV-2 Ab not detected.A test result that is nonreactive does not exclude thepossibility of exposure to or infection with HIV-1 and/orHIV-2. Nonreactive results in this assay for individualswith prior exposure to HIV-1 and/or HIV-2 may be due toantigen and antibody levels that are below the limit ofdetection of this assay.The [employer] HIV Ag/Ab Combo assay result andsupplemental assay results should be interpreted inconjunction with the patient's clinical presentation,history and other laboratory results. If the results areinconsistent with clinical evidence, additional testing issuggested to confirm the result. Blood Venous blood specimen / Unknown 07/25/2025 12:36 PM EDT 07/25/2025 2:20 PM EDT us Arun Peterson MD LAB BLOOD ORDERABLES Final Resul t Performing Organization Address [facility] Co de Phone Number [facility] [address] [place] [phone] * Hepatic Function Panel (07/25/2025 12:36 PM EDT) Only the most recent of2 resultswithin the time period is included. Bilirubin, Total 0.6 0.0 - 1.0 mg/dL [facility] Bilirubin, Direct 0.2 0.0 - 0.5 mg/dL [facility] Aspartate Amino Transferase 25 5 - 31 U/L [facility] Alanine Aminotransferase 27 0 - 31 U/L [facility] Total Protein 6.9 6.5 - 8.0 g/dL [facility] Albumin Level 4.2 3.5 - 5.0 g/dL [facility] Alkaline Phosphatase 74 39 - 117 U/L [facility] Blood Venous blood specimen / Unknown 07/25/2025 12:36 PM EDT 07/25/2025 2:31 PM EDT Arun Peterson MD LAB BLOOD ORDERABLES Final Resul t Performing Organization Address [facility] de Phone Number [facility] [address] [place] [phone] * Hepatitis B Surface Antibody, Qualitative (06/12/2025 3:58 PM EDT) ~Hepatitis B Surface Antibody REACTIVE Nonreactive [facility] Comment:REACTIVE: > 11.99 mI U/mL Blood Venous blood specimen / Unknown 06/12/2025 3:58 PM EDT 06/12/2025 5:29 PM EDT Arun Peterson MD LAB BLOOD ORDERABLES Final Resul t Performing Organization Address [facility] Co de Phone Number [facility] [address] [place] [phone] * BI Mammogram Diagnostic Tomosynthesis Right (02/27/2025 10:40 AM EDT) Anatomical Region Laterality Modality Breast Right Mammography 02/27/2025 10:4 0 AM EDT Narrative 02/27/2025 11:26 AM EDT [facility] [address] [place] [address] Mammography Report Signed Patient: Nusrat Conte MR#: [id number] 053 : 1970 Acct:[id number] Age/Sex: 54 / F ADM Date: 02/27/25 Loc: [facility].MAMMO Attending Dr: Elizabeth Kent MD Ordering Physician: Elizabeth Kent MD Results: 3.6MProbably Benign Finding - Short 6 M F/U Suggested Date of Service: 02/27/25 Follow Up: 6 Month F/U Procedure(s): MM tomosynthesis diagnostic RT Accession Number(s): [id number] cc: Elizabeth Kent MD EXAMINATION: MM DIAGNOSTIC [...] Felix DO 02/27/2025 11:23 AM EDT RP Dictated By: Consuelo Felix DO Signed By: <Electronically signed by Consuelo Felix DO in OV> 02/27/25 1123 DD/ 1040 TD/TT: 02/27/25 1050 Business Consultant: Procedure Note Donotuseinterpreter, Image - 02/27/2025 [facility] [address] [place] [address] Mammography Report Signed Patient: Nusrat Conte LMR#: [id number] 053 : 1970Acct:[id number] Age/Sex: 54 / FADM Date: 02/27/25 Loc: HO.MAMMO Attending Dr: Elizabeth Kent MD Ordering Physician: Elizabeth Kent MD Results: 3.6MProbably Benign Finding - Short 6 M F/U Suggested Date of Service: 02/27/25Follow Up: 6 Month F/U Procedure(s): MM tomosynthesis diagnostic RT Accession Number(s): [id number] cc: Elizabeth Kent MD EXAMINATION: MM DIAGNOSTIC [...] DO 02/27/2025 11:23 AM EDT RP Workstation: [employer] XO Dictated By: Consuelo Felix DO Signed By: <Electronically signed by Consuelo Felix DO in OV> 02/27/25 1123 DD/ 1040 TD/TT: 02/27/25 1050 Business Consultant: Elizabeth Kent MD IMG BI PROCEDURES Final Resul t * THINPREP PAP (06/09/2020 3:38 PM EDT) Clinical Information: SEE COMMENT [facility] Comment:None given COMMENT SEE COMMENT [...] along with historic and current clinical information. Wood Filler: SEE COMMENT [facility] Comment: GSG, CT(ASCP) CT screening location: [place] [address] Interpretation/Resu lt: SEE COMMENT [facility] Comment:Negative for intraep ithelial lesion or malignancy. LMP: SEE COMMENT [facility] Comment:05/13/20 PATHOLOGIST: SEE COMMENT [facility] Comment: Micheal Cruz M.D., Direct , Board Certified in Anatomic Pathology and Cytopathology (electronic signature) Consulting Pathologist [facility] [address] [place] [address] Prev. BX: NONE GIVEN [facility] Prev. PAP: SEE COMMENT [facility] Comment:NONE GIVEN SOURCE: SEE COMMENT [facility] Comment:None given Statement Of Adequacy: SEE COMMENT [facility] Comment: Satisfactory for evaluation. Endocervical/transformation zone component absent. 06/09/2020 3:38 PM EDT [facility] PATH[facility]Y ORDERABLES Final Result Performing Organization Address [facility] Phone Number [facility] [address] * HPV mRNA E6/E7 (06/09/2020 3:38 PM EDT) HPV nRNA E6/E7 Not Detected Not Detected [facility] Comment: This test was performed using the APTIMA HPV Assay ([employer] This assay detects E6/E7 viral messenger RNA (mRNA) from 14 high-risk HPV types (16,18,31,33,35,39,45,51,52,56,58,59,66,68). The analytical performance characteristics of this assay have been determined by [employer]. The modifications have not been cleared or approved by the FDA. This assay has been validated pursuant to the CLIA regulations and is used for clinical purposes. 06/09/2020 3:38 PM EDT Stacy Santiago [facility] LAB BLOOD ORDERABLES Francia l Result Performing Organization Address [facility] de Phone Number [facility] [address] from Last 3 Months or Most Recently Relevant to Health Maintenance Insurance [employer] PARTIAL DENTAL - H[employer] PARTIAL (MEDICAID) TRAVELERS INSURANCE Care Teams Actuarial Associate Relationship Specialty Start Date End Date Nicki Hickey MD [address] [place] [address] PCP - General Family Medicine 11/01/13
--- OUTSIDE RECORDS SUMMARY | 2025-07-28 15:07 | XMS_ITS | Encounter Summary ---
Author Organization [employer] Address [address] [address] [address] [place] [address] Care Team Providers Care Molecular Biology Professor Name Role Phone Nicki Hickey MD Primary Care Provider [phone] Encounter Details Date Type Department Care Team ([facility] Contact Info) Description 07/26/2025 Results Follow-Up [facility] [address] [place] [phone] Arun Peterson MD [address] [place] [address] Hepatitis B surface antigen, EIA, HIV-1/2 Antigen and Antibodies, Fourth Generation, with Reflexes, Hepatitis C Antibody with Reflex to HCV, RNA, Quantitative, Real-Time PCR, Syphilis Screen Social History Tobacco Use Types Packs/Day Years [...] the past 12 months, has t he [employer] gas, oil or water company threatened to [...] [facility] [address] [place] [address] Martin Soto DDS [address] [place] [address] 08/12/2025 10:00 AM EST Procedure Visit [facility] [address] [place] [address] Ewa Oliveros MD [address] [place] [address] 12/16/2025 2:00 PM EDT Office Visit [facility] [address] [place] [address] Rizwan Glover documented as of this encounter Visit Diagnoses Not on filedocumented in this encounter Additional Health Concerns Assessment Noted Time PHQ-9 Depression Total Score: 3 02/29/20 24 9:15 AM EDT documented as of this encounter Care Teams Molecular Biology Professor Relationship Specialty Start Date End Date Nicki Hickey MD [address] [place] [phone] PCP - General Family Medicine 11/01/13 documented as of this encounter
== END 2025-07-28 11:44 | disposition home or self-care (01) ==
LOC: HO.HHCX 11:43
PROVIDERS: Visit Provider Emergency Medicine
DX: M25.511 Pain in right shoulder (principal)
CPT/HCPCS: 73030

== ENCOUNTER → 2025-07-28 11:43 | Outpatient (BNV) | payer SELFPAY | PROVIDERS: Visit Provider Radiology Diagnostic Radiology | DX: M19.011 Primary osteoarthritis, right shoulder (principal) | CPT/HCPCS: 73030 ==